=== PATIENT | male | born 1950 | race Caucasian/White ===

== ENCOUNTER → 2016-10-11 | Outpatient (CLI) | payer MEDICARE, BC ==
[2015-11-11 10:28] VITALS: BP 131/67
[~2016-10-11] MED LIST: ASPI81TA2 PO; BUDE10.2 IH; CARV6.252 PO; GABA-586 PO; HYDR-971 PO; HYDR25TA9 PO; IOHEXOL 180 MG/ML 10 ML VIAL. ONE; LISI-334 PO; METF10002 PO; PROAIR HFA8.5 GM IH; TAMS0.4C2 PO; TIOT18CA IH; TRAM50TA PO; ZINC50TA2 PO; methylPREDNISolone ACETATE 40 MG/ML VIAL. ONE; methylPREDNISolone ACETATE 80 MG/ML VIAL. ONE
--- NOTE | 2016-10-12 05:32 | PAIN ---
DATE OF SERVICE: 10/11/2016 INITIAL CONSULTATION FOR PAIN CLINIC CHIEF COMPLAINT: Neck and right greater than left upper extremity pain. HISTORY OF PRESENT ILLNESS: This is a 66-year-old male who presents with history of pain in the base of the neck and upper extremities for about a year and a half, gradually increasing, not a result of any specific injury or action he is aware of, but significantly more painful over the past few months, increasing in the base of the neck, shoulders, radiating to bilateral upper extremities, worse on the right than the left, in the posterior upper arm, posterior forearm and hands with numbness and tingling in all the fingers, especially on the right hand, but also on the left. The patient reports he has some peripheral neuropathy as well. This is causing some tingling, is much more than it normally is, especially on the right side. The patient reports he is doing physical therapy, has been currently doing this for about a month now and reports that it does feel like his neck is more mobile and he feels like the pain is decreased to a mild extent with still significant tingling, numbness and some fatigability in the upper extremities, especially with repetitive motions of the right hand. The patient reports it as a constant aching pain, tingling and numbness radiating to the bilateral upper extremities, again right greater than left, awakens him from sleep occasionally, but not every night, does not affect his bowel and bladder control, but does affect his ability to walk and perform functions, especially getting dressed using his arms up over his head or repetitive motions with the upper extremities or carrying items with his arms. The patient reports that his disability rating from 0 to 10, 10 being the worst, is a 5 with family and home responsibilities and recreation as well as self-care, 7 with social activity, 6 with occupation and a 4 with life support activities. The patient did have an MRI scan of the cervical spine showing diffuse cervical spondylosis with a moderately large left paramidline and foraminal disk herniation at C6-C7 measuring 5 x 9 mm ____ in the medial aspect of the left neural foramen and associated with thecal sac and cord compression with AP diameter of the thecal sac measuring about 7 mm. Also, has some diffuse disk bulging at C4-C5 and C5-C6 as well as C7-T1. The patient reports no loss of motor function, improving with significant fatigability with the upper extremities, especially on the right side and the patient is right handed. PAST MEDICAL HISTORY: Significant for type 2 diabetes, shortness of breath, emphysema, COPD, home oxygen, cigarette smoking, hypertension, previous myocardial infarction, dizziness, headaches, arthritis. Previous lumbar surgery in 1987. CURRENT MEDICATIONS: Include vitamin E, zinc, carvedilol, metformin, hydrochlorothiazide, lisinopril, gabapentin, low-dose baby aspirin and tamsulosin daily. ALLERGIES: The patient has no known drug allergies. FAMILY HISTORY: Significant for cancer, heart disease and diabetes. 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 REVIEW OF SYSTEMS: The patient's review of systems is positive for those items mentioned in the history of present illness. All systems reviewed and is otherwise negative. It is complete, full and well documented on the patient's chart. PHYSICAL EXAMINATION: VITAL SIGNS: The patient's blood pressure is 129/74, pulse 88, respirations 24, temperature is 97.9 degrees Fahrenheit. Height is 5 feet 11 inches, weighs 227 pounds. GENERAL: The patient is awake, alert, oriented, appropriate, very pleasant demeanor. HEENT: Head shows normocephalic, atraumatic. Extraocular movements are intact and symmetrical. Oral cavity shows mucous membranes moist and pink. Dentition is intact. NECK: Shows anterior throat supple without palpable lymphadenopathy noted. Swallow reflex is symmetrical. CHEST: Shows normal on inspection. Breath sounds are clear to auscultation bilaterally. HEART: Shows S1 and S2 clear. ABDOMEN: Soft, nontender, nondistended. No palpable organomegaly is noted. No rebound or guarding demonstrated, normal on inspection. BACK: Shows spine grossly midline, normal-appearing cervical lordotic curvature, thoracic kyphotic curvature, mild flattening of lumbar lordotic curvature and previously well-healed surgical scar noted. Cervical paraspinous muscle shows some moderate tenderness to palpation in the bilateral cervical paraspinous muscles and are symmetrical, but firm and tender with palpation. No abnormalities, no asymmetry, trigger points or radiation. This appears into the superior medial and lateral trapezius, more on the right than the left. Again, symmetrical in appearance, but more tender with palpation. EXTREMITIES: Upper extremities showed deep tendon reflexes 1+ in the biceps and triceps tendons. Motor exam is strong with acid tank liner strength rated at 5/5 at his biceps and triceps flexion. Peripheral pulses are 2+ in the radial distribution. No peripheral edema is noted. No clubbing, no cyanosis. Upper extremities are warm and dry to touch, equal in color and appearance. Shoulder shrug is strong and intact without loss of strength on resistance as his abduction of the shoulder is 90 degrees without loss of strength on resistance with some moderate pain reported bilaterally in the upper and on the right and left upper shoulders with resistance. IMPRESSION: 1. This is a 66-year-old male with approximately a year and half history of increasing pain base of the neck, upper extremities, right greater than left in a radicular fashion. 2. MRI scan of cervical spine as noted. 3. Hypertension. 4. Type 2 diabetes. 5. Emphysema. PLAN: Options were discussed with the patient including conservative medical management, physical therapy, interventional techniques. He would like to pursue interventional techniques. We discussed a cervical epidural steroid injection using description as well as anatomical models to describe the procedure. Risks were then discussed including, but not limited to bleeding, infection, possibility of epidural hematoma, subsequent neurologic compromise, dural puncture, headaches, spinal cord and/or nerve damage, side effects of steroid medications and poor results regarding pain control. The patient understands and wishes to proceed. The patient will return to clinic in approximately 2 weeks for followup, was counseled on return appointment, activity level and side effects to be aware of. DIAGNOSES: Cervical radiculopathy with cervical herniated disk and cervical degenerative disk disease. PROCEDURE: Cervical epidural steroid injection in a translaminar approach at C6-C7 level using C-arm fluoroscopic guidance under sterile prep and drape using local anesthetic. MEDICATIONS INJECTED: A 120 mg of Depo-Medrol plus 5 mL preservative-free normal saline and 2 mL of Isovue for contrast. CONDITION AT DISCHARGE: Stable. The patient tolerated the procedure well, had no complications. STACI ARVIZU MD DR: SHARON/adri JOB#: [id number] / [id number] ORLY Hernandez MD
== END | disposition home or self-care (01) ==
LOC: PNCL 12:40
PROVIDERS: ATTEND Anesthesiology
DX: M50.123 Cervical disc disorder at C6-C7 level with radiculopathy (principal); E11.9 Type 2 diabetes mellitus without complications; I10 Essential (primary) hypertension; J43.9 Emphysema, unspecified; F17.200 Nicotine dependence, unspecified, uncomplicated; E78.00 Pure hypercholesterolemia, unspecified; J44.9 Chronic obstructive pulmonary disease, unspecified; F41.9 Anxiety disorder, unspecified; F32.9 Major depressive disorder, single episode, unspecified; M19.90 Unspecified osteoarthritis, unspecified site; J45.909 Unspecified asthma, uncomplicated; Z87.39 Personal history of other diseases of the musculoskeletal system and connective tissue
CPT/HCPCS: 62321; J1030; J1040

== ENCOUNTER → 2016-11-16 | Outpatient (CLI) | payer MEDICARE, BC ==
[2015-11-11 10:28] VITALS: BP 131/67
[~2016-11-16] MED LIST changes: +HYDR-2762 PO
--- NOTE | 2016-11-17 07:14 | PAIN ---
DATE OF SERVICE: 11/16/2016 PROGRESS NOTE FOR PAIN CLINIC DIAGNOSIS: Cervical radiculopathy with cervical herniated disk and cervical degenerative disk disease. HISTORY OF PRESENT ILLNESS: The patient is a 66-year-old male who returns for followup status post cervical epidural steroid injection x 1. The patient reports about 75% improvement or better, but the pain is beginning to return on him now for the past 2-3 days. The patient reports it has increased in the base of the neck and left shoulder, upper extremity as it was previously, some in the right posterior upper back, but mostly in the left arm with some numbness and tingling that is becoming more constant. The patient reports it is a 9 on a scale of 10 at its worst. He is taking hydrocodone still, which helps to decrease the pain by about 50% as well. The patient reports otherwise no new motor or sensory deficits or other complaints. Did very well with the first injection, was increasing his activity with greater ease and comfort, again until the last 2-3 days, it has been very well controlled. The patient reports otherwise no complaints. PHYSICAL EXAMINATION: VITAL SIGNS: The patient's blood pressure is 141/80, pulse is 88, respirations 20, temperature is 98.0 degrees Fahrenheit, height is 5 feet 11 inches, weight is 232 pounds. GENERAL: The patient is awake, alert, oriented, appropriate, has a very pleasant demeanor. HEENT: Shows normocephalic, atraumatic. Extraocular movements are intact, symmetrical. Oral cavity, his mucous membranes are moist and pink. Dentition is intact. NECK: Shows anterior throat supple without palpable lymphadenopathy noted. Swallow reflex is symmetrical. CHEST: Shows normal on inspection. Breath sounds are clear to auscultation bilaterally. HEART: Shows S1 and S2 clear. ABDOMEN: Obese, soft, nontender, nondistended. Slight umbilical hernia is noted once again. MUSCULOSKELETAL: The patient's back shows spine grossly in the midline. Neck shows midline spine with moderate tenderness with palpation in the inferior aspect of the cervical paraspinous musculature as well as the superior medial trapezius bilaterally, but only diffusely without radiation. The patient shows good rotational motion of the cervical spine, both laterally as well as extension and flexion without significant limitation. Upper extremities show deep tendon reflexes at 1+ in the biceps and triceps tendons. Motor exam is strong with 5/5 vice president of procurement strength, biceps and triceps flexion and equal. PLAN: Options were discussed with the patient. The patient's old chart was reviewed as was his current medication regimen and updated. Current review of systems updated today as well. We will proceed with a second cervical epidural steroid injection today with fluoroscopic guidance. The risks were again discussed including, but not limited to bleeding, infection, possibility of epidural hematoma, subsequent neurological compromise, dural puncture, headaches, spinal cord and/or nerve damage, side effects of steroid medication and poor results regarding pain control. The patient understands and wishes to proceed. The patient will return to the clinic in approximately 2 weeks for followup, was counseled on his return appointment, activity level and side effects to be aware of. DIAGNOSIS: Cervical radiculopathy with cervical herniated disk and cervical degenerative disk disease. PROCEDURE: Cervical epidural steroid injection in a translaminar approach at the C6-C7 level using C-arm fluoroscopic guidance under sterile prep and drape using local anesthetic. MEDICATIONS INJECTED: 120 mg Depo-Medrol plus 5 mL preservative-free normal saline and 2 mL Isovue for contrast. CONDITION AT DISCHARGE: Stable. The patient tolerated the procedure well, had no complications. STACI ARVIZU MD DR: SHARON/adri JOB#: [id number] / [id number]
== END ==
LOC: PNCL 08:13
PROVIDERS: ATTEND Anesthesiology
DX: M50.123 Cervical disc disorder at C6-C7 level with radiculopathy (principal)
CPT/HCPCS: 62321; J1030; J1040

== ENCOUNTER → 2017-01-22 | Outpatient (CLI) | payer MEDICARE, BC ==
[2015-11-11 10:28] VITALS: BP 131/67
[~2017-01-22] MED LIST changes: +ASPI-630 PO; -ASPI81TA2 PO; +METF-620 PO; -METF10002 PO
--- NOTE | 2017-01-23 03:57 | PAIN ---
DATE OF SERVICE: 01/22/2017 PROGRESS NOTE FOR PAIN CLINIC DIAGNOSES: Cervical radiculopathy with cervical herniated disk and cervical degenerative disk disease. HISTORY OF PRESENT ILLNESS: The patient is a 66-year-old male who returns for followup status post cervical epidural steroid injection x 2, last seen on 11/16/2016. The patient did very well with this with about 80% improvement for about a month. The patient reports that over the past week, the pain has begun to return in the base of the neck and shoulders, somewhat worse on the left than the right, but present bilaterally. The patient reports the pain as a 10 on a scale of 10 at its worst, ____ severe, constant, severe dull aching pain in the base of the shoulders and neck, worse with activity, worse with upper extremity motion. The patient reports it is better with sitting or lying down. It does not awaken him from sleep at night. Otherwise, no new motor or sensory deficits or other changes. PHYSICAL EXAMINATION: VITAL SIGNS: Shows blood pressure 124/73, pulse 80, respirations are 22, temperature is 97.6 degrees Fahrenheit, height is 5 feet 11 inches and weight is 229 pounds. GENERAL: The patient is awake, alert, oriented, appropriate, very pleasant demeanor. HEENT: Shows normocephalic, atraumatic. Extraocular movements are intact and symmetrical. Oral cavity shows mucous membranes moist and pink. Dentition is intact. NECK: Shows anterior throat supple without palpable lymphadenopathy noted. Swallow reflex is symmetrical. CHEST: Shows normal on inspection. Breath sounds clear to auscultation bilaterally. HEART: Shows S1 and S2 clear. ABDOMEN: Soft, nontender, nondistended. No palpable organomegaly. No rebound or guarding demonstrated. BACK: Shows spine grossly midline. Slight exaggeration of thoracic kyphosis, cervical lordotic curvatures mildly flattened. Cervical paraspinous musculature shows only some very mild tenderness in the middle and lower distribution of paraspinous muscles bilaterally, but only diffusely without radiation. No tenderness in the superior medial trapezius. The patient has good rotational motion with some minor pain with forward extension, but not with forward flexion. Good right and left lateral rotation although it is slightly ____ past 45 degrees. EXTREMITIES: Bilateral upper extremities showed deep tendon reflexes 1+ in the biceps and triceps tendons. Motor exam is strong with chiropractic neurologist strength rated at 5/5 at his biceps and triceps flexion. Options were discussed with the patient and the patient's old chart was reviewed as his current medication regimen updated. Current review of systems updated today as well. We will proceed with a third in the series of cervical epidural steroid injection with fluoroscopic guidance. Risks were again discussed including but not limited to bleeding, infection, possibility of epidural hematoma, subsequent neurologic compromise, dural puncture, headaches, spinal cord and/or nerve damage, side effects of steroid medication and poor results regarding pain control. The patient understands and wishes to proceed. The patient will return to clinic in approximately 2 weeks for followup, was counseled on return appointment, activity level and side effects to be aware of. DIAGNOSIS: Cervical radiculopathy with cervical degenerative disk disease, cervical herniated disk. PROCEDURE: Cervical epidural steroid injection in translaminar approach at C6-C7 level using C-arm fluoroscopic guidance under sterile prep and drape using local anesthetic. MEDICATIONS INJECTED: 120 mg of Depo-Medrol plus 5 mL of preservative-free normal saline and 2 mL Isovue for contrast. CONDITION AT DISCHARGE: Stable. The patient tolerated procedure well, had no complications. STACI ARVIZU MD DR: SHARON/adri JOB#: [id number] / [id number]
== END | disposition home or self-care (01) ==
LOC: PNCL 09:22
PROVIDERS: ATTEND Anesthesiology
DX: M50.123 Cervical disc disorder at C6-C7 level with radiculopathy (principal); I50.9 Heart failure, unspecified; I10 Essential (primary) hypertension; J44.9 Chronic obstructive pulmonary disease, unspecified; J45.909 Unspecified asthma, uncomplicated; M19.90 Unspecified osteoarthritis, unspecified site; E78.00 Pure hypercholesterolemia, unspecified; E11.9 Type 2 diabetes mellitus without complications; F41.9 Anxiety disorder, unspecified; Z72.0 Tobacco use; Z86.39 Personal history of other endocrine, nutritional and metabolic disease; Z86.69 Personal history of other diseases of the nervous system and sense organs
CPT/HCPCS: 62321; J1030; J1040

== ENCOUNTER 2017-02-17 22:40 | Emergency (ER) | payer MEDICARE, BC ==
[~2017-02-17] VITALS: Ht 177.8 cm; Wt 99.8 kg
[~2017-02-17 22:40] MED LIST changes: -IOHEXOL 180 MG/ML 10 ML VIAL. ONE; -methylPREDNISolone ACETATE 40 MG/ML VIAL. ONE; -methylPREDNISolone ACETATE 80 MG/ML VIAL. ONE
[2017-02-17 22:50] VITALS: BP 114/65
--- NOTE | 2017-02-17 22:56 | PHYS DOC ---
Past Medical History Past Medical History: COPD, High Cholesterol, Hypertension Additional Past Medical Histor: enlarged prostate Past Surgical History: Other Additional Past Surgical Histo: BACK Alcohol Use: None Drug Use: None Adult General Chief Complaint Chief Complaint: SHORTNESS OF BREATH HPI HPI Patient is a 66 year old male w hx of oxygen dependent copd presents with one day of dyspnea , cough, no fever, no chest pain. no n/v/d, no abd pain or leg swelling. Review of Systems Review of Systems Constitutional: Denies fever or chills [] Eyes: Denies change in visual acuity, redness, or eye pain [] HENT: Denies nasal congestion or sore throat [] Respiratory: Denies cough or shortness of breath [] Cardiovascular: No additional information not addressed in HPI [] GI: Denies abdominal pain, nausea, vomiting, bloody stools or diarrhea [] : Denies dysuria or hematuria [] Musculoskeletal: Denies back pain or joint pain [] Integument: Denies rash or skin lesions [] Neurologic: Denies headache, focal weakness or sensory changes [] Endocrine: Denies polyuria or polydipsia [ all ROS neg except as noted in HPI] Current Medications Current Medications Current Medications Medications (Trade) Dose Ordered Sig/Sarah Start Time Stop Time Status Last Admin Dose Admin Albuterol Sulfate (Ventolin Neb Soln) 2.5 mg 1X ONCE 02/17/17 23:15 02/17/17 23:16 DC 02/17/17 23:05 2.5 MG Methylprednisolone Sodium Succinate (SOLU-Medrol 125MG VIAL) 125 mg 1X ONCE 02/17/17 23:15 02/17/17 23:16 DC 02/17/17 23:16 125 MG Allergies Allergies Allergies Coded Allergies Type Severity Reaction Last Updated Verified No Known Drug Allergies 02/18/15 No Physical Exam Physical Exam Constitutional: Well developed, well nourished, no acute distress, non-toxic appearance. [] HENT: Normocephalic, atraumatic, bilateral external ears normal, oropharynx moist, no oral exudates, nose normal. [] Eyes: PERRLA, EOMI, conjunctiva normal, no discharge. [] Neck: Normal range of motion, no tenderness, supple, no stridor. [] Cardiovascular:Heart rate regular rhythm, no murmur [] Lungs & Thorax: Bilateral breath faint wheezing w increased work of breathing [ ] Abdomen: Bowel sounds normal, soft, no tenderness, no masses, no pulsatile masses. [] Skin: Warm, dry, no erythema, no rash. [] Back: No tenderness, no CVA tenderness. [] Extremities: No tenderness, no cyanosis, no clubbing, ROM intact, no edema. [] Neurologic: Alert and oriented X 3, normal motor function, normal sensory function, no focal deficits noted. [] Psychologic: Affect normal, judgement normal, mood normal. [] Current Patient Data Vital Signs Vital Signs Date Time Temp Pulse Resp B/P (MAP) Pulse Ox O2 Delivery O2 Flow Rate FiO2 02/17/17 23:05 93 Nasal Cannula 2.0 02/17/17 22:50 98.9 92 22 114/65 (81) 98.9 Lab Values Laboratory Tests Test 02/17/17 23:00 White Blood Count 8.6 x10^3/uL (4.0-11.0) Red Blood Count 4.53 x10^6/uL (4.30-5.70) Hemoglobin 14.0 g/dL (13.0-17.5) Hematocrit 40.7 % (39.0-53.0) Mean Corpuscular Volume 90 fL (79-100) Mean Corpuscular Hemoglobin 31 pg (25-35) Mean Corpuscular Hemoglobin Concent 34 g/dL (31-37) Red Cell Distribution Width 15.0 % (11.5-14.5) H Platelet Count 130 x10^3/uL (140-400) L Neutrophils (%) (Auto) 67 % (31-73) Lymphocytes (%) (Auto) 21 % (24-48) L Monocytes (%) (Auto) 9 % (0-9) Eosinophils (%) (Auto) 2 % (0-3) Basophils (%) (Auto) 1 % (0-3) Neutrophils # (Auto) 5.8 x10^3uL (1.8-7.7) Lymphocytes # (Auto) 1.8 x10^3/uL (1.0-4.8) Monocytes # (Auto) 0.8 x10^3/uL (0.0-1.1) Eosinophils # (Auto) 0.2 x10^3/uL (0.0-0.7) Basophils # (Auto) 0.1 x10^3/uL (0.0-0.2) Sodium Level 139 mmol/L (136-145) Potassium Level 3.5 mmol/L (3.5-5.1) Chloride Level 99 mmol/L (98-107) Carbon Dioxide Level 33 mmol/L (21-32) H Anion Gap 7 (6-14) Blood Urea Nitrogen 18 mg/dL (8-26) Creatinine 0.7 mg/dL (0.7-1.3) Estimated GFR (Cockcroft-Gault) 112.5 BUN/Creatinine Ratio 26 (6-20) H Glucose Level 117 mg/dL (70-99) H Calcium Level 9.3 mg/dL (8.5-10.1) Total Bilirubin 0.5 mg/dL (0.2-1.0) Aspartate Amino Transferase (AST) 16 U/L (15-37) Alanine Aminotransferase (ALT) 24 U/L (16-63) Alkaline Phosphatase 66 U/L (46-116) Troponin I Quantitative < 0.017 ng/mL (0.000-0.055) Total Protein 7.0 g/dL (6.4-8.2) Albumin 3.8 g/dL (3.4-5.0) Albumin/Globulin Ratio 1.2 (1.0-1.7) Laboratory Tests 02/17/17 23:00 Laboratory Tests 02/17/17 23:00 EKG EKG EKG[EKG sinus rhythm rate of 92 no STEMI my interpretation] Radiology/Procedures Radiology/Procedures CXR [COPD no infiltrate, no pneumothorax no heart failure my interpretation] Course & Med Decision Making Course & Med Decision Making Pertinent Labs and Imaging studies reviewed. (See chart for details) plan cxr , ekg , labs, breathing neb treatments[] Patient was dramatically improved after one albuterol treatment and IV steroids. His work of breathing is normal his O2 saturation is normal on his baseline of 2 L of O2 by nasal cannula. Dragon Disclaimer Dragon Disclaimer This electronic medical record was generated, in whole or in part, using a voice recognition dictation system. Departure Departure Impression: Primary Impression: COPD with exacerbation Disposition: HOME, SELF-CARE Condition: IMPROVED Referrals: ORLY DASH MD (PCP) Patient Instructions: Chronic Obstructive Pulmonary Disease Exacerbation, Easy- to-Read Scripts Prednisone (PREDNISONE) 20 Mg Tablet 2 TAB PO DAILY for 5 Days, #10 TAB Prov: YONG BASS MD 02/17/17 YONG BASS MD Feb 17, 2017 22:56
[2017-02-17 23:12] LABS: BASO # 0.1 x10^3/uL (0.0-0.2); BASO % 1 % (0-3); EOS % 2 % (0-3); HEMATOCRIT 40.7 % (39.0-53.0); LYMPH # 1.8 x10^3/uL (1.0-4.8); LYMPH % 21 % (24-48); MEAN CORPUSCULAR HEMOGLOBIN 31 pg (25-35); MEAN CORPUSCULAR HGB CONC 34 g/dL (31-37); MEAN CORPUSCULAR VOLUME 90 fL (79-100); MONO % 9 % (0-9); NEUT % 67 % (31-73); PLATELET COUNT 130 x10^3/uL (140-400); RED BLOOD COUNT 4.53 x10^6/uL (4.30-5.70); WHITE BLOOD COUNT 8.6 x10^3/uL (4.0-11.0)
[2017-02-17] MEDS ORDERED: methylPREDNISolone SOD SUCC PF 125 MG/2 ML VIAL. IV ONE (23:15)
[2017-02-17] MEDS ORDERED: ALBUTEROL SULFATE 2.5 MG/3 ML NEBU. NEB ONE (23:15)
[2017-02-17 23:30] LABS: CALCIUM 9.3 mg/dL (8.5-10.1); CREATININE 0.7 mg/dL (0.7-1.3); GFR 112.5; POTASSIUM 3.5 mmol/L (3.5-5.1)
[2017-02-17 23:35] LABS: ALBUMIN 3.8 g/dL (3.4-5.0); ALBUMIN/GLOBULIN RATIO 1.2 (1.0-1.7); TOTAL BILIRUBIN 0.5 mg/dL (0.2-1.0)
[2017-02-17] MEDS ORDERED: PRED20TA PO (23:51)
--- NOTE | 2017-02-18 06:13 | EKG ---
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
--- NOTE | 2017-02-18 08:29 | RAD ---
Portable chest, 02/27/2017: History: COPD, dyspnea Comparison is made to a study from 11/09/2015. The heart size and pulmonary vascularity are normal. There is calcific plaquing of the aorta. There are mild scattered parenchymal scars. No acute infiltrate is seen. There is no evidence of pleural fluid. IMPRESSION: 1. Mild parenchymal scarring. 2. No acute abnormality is detected.
== END 2017-02-18 00:15 | disposition home or self-care (01) ==
LOC: ER 22:40
DX: J44.1 Chronic obstructive pulmonary disease with (acute) exacerbation (principal); E78.00 Pure hypercholesterolemia, unspecified; I10 Essential (primary) hypertension; N40.0 Benign prostatic hyperplasia without lower urinary tract symptoms; Z99.81 Dependence on supplemental oxygen
CPT/HCPCS: 36415; 71010; 80053; 84484; 85027; 93005; 94250; 94640; 96374; 99285; J2930

== ENCOUNTER → 2017-02-18 | Outpatient (CLI) | payer BC, MEDICARE ==
[2017-02-17 22:50] VITALS: BP 114/65
[~2017-02-18] MED LIST changes: +PRED20TA PO
--- NOTE | 2017-02-18 11:16 | RAD ---
CT of the chest without contrast, 02/10/2017: History: Follow-up lung nodule Noncontrast scans were obtained with multiplanar reconstructions produced. There are severe emphysematous changes in the lungs. There is mild bilateral apical scarring. There are several scattered calcified granulomata in the lungs. There are additional scattered linear opacities in both lungs compatible with scars. There are linear opacities medially in the right middle lobe compatible with pleural-parenchymal scarring. No suspicious pulmonary nodule or mass is currently seen. There is no evidence of pleural fluid. There is moderate calcific plaquing of the thoracic aorta. There is unchanged dilatation of the ascending aorta which measures approximately 4.5 cm in width. There are moderate coronary artery calcifications. No mediastinal adenopathy is seen. A couple of tiny left renal calcifications are again noted. IMPRESSION: 1. Severe pulmonary emphysema with parenchymal scarring. 2. Old healed granulomatous disease in the chest. 3. Aortic atherosclerosis with mild stable dilatation of the ascending aorta. 4. Coronary artery disease. PQRS Compliance Statement: One or more of the following individualized dose reduction techniques were utilized for this examination: 1. Automated exposure control 2. Adjustment of the mA and/or kV according to patient size 3. Use of iterative reconstruction technique
== END | disposition home or self-care (01) ==
LOC: CT 08:09
PROVIDERS: ATTEND Internal Medicine Pulmonary Disease
DX: R91.1 Solitary pulmonary nodule (principal); I70.0 Atherosclerosis of aorta; J43.9 Emphysema, unspecified; I25.10 Atherosclerotic heart disease of native coronary artery without angina pectoris
CPT/HCPCS: 71250

== ENCOUNTER → 2017-03-07 | Outpatient (CLI) | payer MEDICARE ==
[2017-02-17 22:50] VITALS: BP 114/65
--- NOTE | 2017-03-08 03:14 | PAIN ---
DATE OF SERVICE: 03/07/2017 PROGRESS NOTE FOR PAIN CLINIC DIAGNOSIS: Cervical radiculopathy with cervical herniated disk and cervical degenerative disk disease. HISTORY OF PRESENT ILLNESS: The patient is a 66-year-old male who returns for followup status post cervical epidural steroid injections x 3, last injection 01/22/2017. The patient does well for about 4-5 weeks after the injection with significant decreased pain in the neck and upper extremities, but after that time, the pain returned almost to its baseline. The patient reports it is a 10 on a scale of 10 at its worst, is a 5 on the scale at its least, is currently a 7 on a scale of 10, base of the neck and into the bilateral shoulders, right greater than left as it was previously. The patient reports no new motor or sensory deficits, but still significant pain, aching and dull, shooting and stabbing, causing headaches as well, just as it had done after each of the injections. The patient has had 3 of these now, somewhat frustrated with the return of the pain. The patient reports sporadically it awakes him from sleep at night. If he gets out of bed or changes positions, does get better and can get back to sleep. The patient reports no new motor or sensory deficits or other complaints. PHYSICAL EXAMINATION: VITAL SIGNS: The patient's blood pressure is 129/69, pulse 73, respirations 16, temperature is 98.2 degrees Fahrenheit, height is 5 feet 11 inches, weight is 234 pounds. GENERAL: The patient is awake, alert, oriented, appropriate, has a very pleasant demeanor. HEENT: Shows normocephalic, atraumatic. The patient is wearing nasal cannula oxygen. Oral cavity: His mucous membranes are moist and pink. Extraocular movements are intact and symmetrical. NECK: Shows anterior throat supple without palpable lymphadenopathy noted. Swallow reflex is symmetrical. CHEST: Shows normal on inspection. Breath sounds are clear to auscultation bilaterally, but distant. HEART: Shows S1 and S2 clear. No murmurs auscultated. ABDOMEN: Obese, soft, nontender, nondistended. No palpable organomegaly is noted. No rebound or guarding demonstrated. BACK: Shows spine grossly in the midline. Cervical paraspinous musculature shows symmetrical, but with palpation shows some moderate tenderness in the middle and lower distribution of the paraspinous muscles bilaterally without radiation into the superior and medial aspect of the trapezius muscles, more tender on the right than the left as on previous exam. EXTREMITIES: Upper extremities show deep tendon reflexes 1+ in the biceps and triceps tendons and are equal. 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 Peripheral pulses are 2+ in the radial distribution. No peripheral edema is noted. No clubbing, no cyanosis. Shoulder shrug is strong and intact as is abduction of the shoulders to 90 degrees without loss of strength on resistance, but with some minor pain reported more on the right than the left. PLAN: Options were discussed with the patient. The patient's old chart was reviewed as was his current medication regimen and updated. Current review of systems updated today as well. We will refer the patient back to his neurosurgeon as he has had all 3 of his injections at this time with good results only for about 4-5 weeks, not lasting longer than this with continued cervical radiculopathy as well as herniated cervical disk. The patient will be given Medrol Dosepak in the meantime, was given instructions as well as side effects to be aware of with the medication and will follow up with his neurosurgeon. STACI ARVIZU MD DR: SHARON/adri JOB#: [id number] / [id number]
== END | disposition home or self-care (01) ==
LOC: PNCL 09:06
PROVIDERS: ATTEND Anesthesiology
DX: M50.30 Other cervical disc degeneration, unspecified cervical region (principal)
CPT/HCPCS: G0463

== ENCOUNTER → 2017-04-12 | Outpatient (CLI) | payer MEDICARE ==
--- NOTE | 2017-04-12 14:05 | RAD ---
MRI Cervical Spine Without Contrast History: Neck pain with bilateral arm stiffness Technique: Multiplanar, multi sequential noncontrast MR imaging was performed of the cervical spine. Comparison: None Findings: There is motion degradation, limits accurate evaluation of neural foramina. There is very minimal grade 1 anterior spondylolisthesis C7-T1 and T1-2. Cervical cord caliber is within normal limits without convincing focal signal abnormality allowing for artifact. There is mild degenerative disc disease C6-7. There is no significant marrow edema. There is no significant abnormality cervical medullary junction. C2-3: Spinal canal and neural foramina are adequate. There is mild right uncovertebral degenerative change. C3-C4: There is moderate to severe bilateral facet hypertrophic change. There is very shallow posterior protrusion greater in the right lateral recess. Central canal is minimally narrowed to 9 mm. There is mild uncovertebral degenerative change. There is probable [id number] neural foramina compromise. C4-C5: There is severe right facet hypertrophic change. Spinal canal is adequate. There is mild left uncovertebral degenerative change. There is likely at least moderate neural foramina compromise bilaterally. C5-C6: There is fairly severe facet hypertrophic change bilaterally. There is mild buckling of the ligamentum flavum. Central canal is adequate 11 mm. There is left uncovertebral degenerative change. There is severe narrowing of the left neural foramen. There is moderate to severe narrowing of the right neural foramen. C6-C7: There is posterior extrusion partially contained about intervertebral disc space although extent above the intervertebral disc space eccentric to the left lateral recess, up to 5 to 6 mm AP by 10 mm CC by 11 and 12 mm transverse. There is indentation upon the ventral thecal sac and contact of the cord greater in the left lateral recess. Central canal is narrowed to approximately 6 mm with a somewhat greater degree of left lateral recess stenosis. There is fairly severe narrowing of the left neural foramen, likely mild/moderate narrowing on the right. C7-T1: Spinal canal and neural foramina are adequate. Impression: 1. Extrusion at C6-7 results in moderate to severe left lateral recess stenosis with contact of the ventral cord greater in the left lateral recess, also narrowing of the left neural foramen. 2. There is other neural foramina compromise due to facet degenerative change as described, somewhat limited evaluation due to motion. Electronically signed by: Polo Cole MD (04/12/2017 2:01 PM) [id number]
== END | disposition home or self-care (01) ==
LOC: MRI 12:26
PROVIDERS: ATTEND Neurological Surgery
DX: M50.223 Other cervical disc displacement at C6-C7 level (principal); M51.36 Other intervertebral disc degeneration, lumbar region; M43.12 Spondylolisthesis, cervical region; M50.323 Other cervical disc degeneration at C6-C7 level; M48.02 Spinal stenosis, cervical region; M50.221 Other cervical disc displacement at C4-C5 level
CPT/HCPCS: 72141

== ENCOUNTER 2017-05-14 21:26 | Emergency (ER) | payer MEDICARE, BC ==
[~2017-05-14] VITALS: Ht 180.3 cm; Wt 104.3 kg
[2017-05-14] MEDS ORDERED: ASPIRIN ENTERIC COATED 325 MG TABLET.DR. PO ONE (22:00)
[2017-05-14] MEDS ORDERED: IPRATRPIUM/ALBUTEROL 0.5/2.5MG 3 ML NEBU. NEB ONE (22:00)
[2017-05-14] MEDS ORDERED: methylPREDNISolone SOD SUCC PF 125 MG/2 ML VIAL. IV ONE (22:00)
[2017-05-14 22:01] LABS: BASO # 0.1 x10^3/uL (0.0-0.2); BASO % 1 % (0-3); EOS % 3 % (0-3); HEMATOCRIT 40.6 % (39.0-53.0); HEMOGLOBIN 13.6 g/dL (13.0-17.5); LYMPH # 1.1 x10^3/uL (1.0-4.8); LYMPH % 16 % (24-48); MEAN CORPUSCULAR HEMOGLOBIN 30 pg (25-35); MEAN CORPUSCULAR HGB CONC 34 g/dL (31-37); MEAN CORPUSCULAR VOLUME 90 fL (79-100); MONO % 9 % (0-9); NEUT % 72 % (31-73); PLATELET COUNT 154 x10^3/uL (140-400); RED BLOOD COUNT 4.51 x10^6/uL (4.30-5.70); RED CELL DISTRIBUTION WIDTH 15.1 % (11.5-14.5); WHITE BLOOD COUNT 7.2 x10^3/uL (4.0-11.0)
[2017-05-14 22:07] VITALS: BP 91/59
[2017-05-14 22:10] LABS: PROTHROMBIN TIME PATIENT 12.5 SEC (11.7-14.0)
[2017-05-14 22:15] LABS: CALCIUM 9.2 mg/dL (8.5-10.1); CREATININE 0.8 mg/dL (0.7-1.3); GFR 96.4; POTASSIUM 3.5 mmol/L (3.5-5.1)
[2017-05-14 22:21] LABS: ALBUMIN 3.9 g/dL (3.4-5.0); ALBUMIN/GLOBULIN RATIO 1.3 (1.0-1.7); MAGNESIUM 1.8 mg/dL (1.8-2.4); TOTAL BILIRUBIN 0.3 mg/dL (0.2-1.0)
[2017-05-14] MEDS ORDERED: PRED50TA PO (23:17)
--- NOTE | 2017-05-14 23:17 | PHYS DOC ---
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 Started after inhaling some Clorox earlier this morning he feels that he is getting worse throughout the day. Patient does have a history of COPD and wears 2 L of oxygen at baseline and says that he has not needed extra oxygen but he does feel more short of breath. He has been using his nebulized treatments with no relief. Patient denies any pain fevers chills nausea vomiting diaphoresis. He is in no obvious distress with normal vital signs. Review of Systems Review of Systems Constitutional: Denies fever or chills [] Eyes: Denies change in visual acuity, redness, or eye pain [] Respiratory: + cough, shortness of breath [] Cardiovascular: No additional information not addressed in HPI [] GI: Denies abdominal pain, nausea, vomiting, bloody stools or diarrhea [] Neurologic: Denies headache, focal weakness or sensory changes [] Current Medications Current Medications Current Medications Medications (Trade) Dose Ordered Sig/Sarah Start Time Stop Time Status Last Admin Dose Admin Albuterol/ Ipratropium (Duoneb) 3 ml 1X ONCE 05/14/17 22:00 05/14/17 22:01 DC 05/14/17 22:58 3 ML Aspirin (Ecotrin) 325 mg 1X ONCE 05/14/17 22:00 05/14/17 22:01 DC 05/14/17 22:06 325 MG Methylprednisolone Sodium Succinate (SOLU-Medrol 125MG VIAL) 125 mg 1X ONCE 05/14/17 22:00 05/14/17 22:01 DC 05/14/17 22:06 125 MG Allergies Allergies Allergies Coded Allergies Type Severity Reaction Last Updated Verified No Known Drug Allergies 02/18/15 No Physical Exam Physical Exam Constitutional: Well developed, well nourished, no acute distress, non-toxic appearance. [] HENT: Normocephalic, atraumatic, bilateral external ears normal, oropharynx moist, no oral exudates, nose normal. [] Cardiovascular:Heart rate regular rhythm, no murmur [] Lungs & Thorax: Bilateral breath sounds diminished with inspiratory and expiratory wheezing Abdomen: Bowel sounds normal, soft, no tenderness, no masses, no pulsatile masses. [] Extremities: No tenderness, no cyanosis, no clubbing, ROM intact, no edema. [] Neurologic: Alert and oriented X 3, normal motor function, normal sensory function, no focal deficits noted. [] Current Patient Data Vital Signs Vital Signs Date Time Temp Pulse Resp B/P (MAP) Pulse Ox O2 Delivery O2 Flow Rate FiO2 05/14/17 22:59 96 Nasal Cannula 2.0 05/14/17 22:07 86 20 91/59 (70) 05/14/17 21:43 97.8 97.8 Lab Values Laboratory Tests Test 05/14/17 21:50 White Blood Count 7.2 x10^3/uL (4.0-11.0) Red Blood Count 4.51 x10^6/uL (4.30-5.70) Hemoglobin 13.6 g/dL (13.0-17.5) Hematocrit 40.6 % (39.0-53.0) Mean Corpuscular Volume 90 fL (79-100) Mean Corpuscular Hemoglobin 30 pg (25-35) Mean Corpuscular Hemoglobin Concent 34 g/dL (31-37) Red Cell Distribution Width 15.1 % (11.5-14.5) H Platelet Count 154 x10^3/uL (140-400) Neutrophils (%) (Auto) 72 % (31-73) Lymphocytes (%) (Auto) 16 % (24-48) L Monocytes (%) (Auto) 9 % (0-9) Eosinophils (%) (Auto) 3 % (0-3) Basophils (%) (Auto) 1 % (0-3) Neutrophils # (Auto) 5.2 x10^3uL (1.8-7.7) Lymphocytes # (Auto) 1.1 x10^3/uL (1.0-4.8) Monocytes # (Auto) 0.6 x10^3/uL (0.0-1.1) Eosinophils # (Auto) 0.2 x10^3/uL (0.0-0.7) Basophils # (Auto) 0.1 x10^3/uL (0.0-0.2) Prothrombin Time 12.5 SEC (11.7-14.0) Prothrombin Time INR 1.0 (0.8-1.1) PTT 28 SEC (24-38) Sodium Level 140 mmol/L (136-145) Potassium Level 3.5 mmol/L (3.5-5.1) Chloride Level 100 mmol/L (98-107) Carbon Dioxide Level 32 mmol/L (21-32) Anion Gap 8 (6-14) Blood Urea Nitrogen 18 mg/dL (8-26) Creatinine 0.8 mg/dL (0.7-1.3) Estimated GFR (Cockcroft-Gault) 96.4 BUN/Creatinine Ratio 23 (6-20) H Glucose Level 139 mg/dL (70-99) H Calcium Level 9.2 mg/dL (8.5-10.1) Magnesium Level 1.8 mg/dL (1.8-2.4) Total Bilirubin 0.3 mg/dL (0.2-1.0) Aspartate Amino Transferase (AST) 15 U/L (15-37) Alanine Aminotransferase (ALT) 26 U/L (16-63) Alkaline Phosphatase 62 U/L (46-116) Troponin I Quantitative < 0.017 ng/mL (0.000-0.055) EO-Qkz-K-Type Natriuretic Peptide 1564 pg/mL (0-124) H Total Protein 7.0 g/dL (6.4-8.2) Albumin 3.9 g/dL (3.4-5.0) Albumin/Globulin Ratio 1.3 (1.0-1.7) Laboratory Tests 05/14/17 21:50 Laboratory Tests 05/14/17 21:50 EKG EKG Sinus rhythm at 90 beats per minutes with multiple PVCs but no obvious ST elevation or depression and normal T waves Radiology/Procedures Radiology/Procedures Normal mediastinum borderline cardiomegaly no obvious free air pneumothorax or opacity with possible interstitial edema. Course & Med Decision Making Course & Med Decision Making Patient was given a steroid which she said has almost resolved his flushed feeling. They breathing treatment as well which made him feel better and he had improved aeration of his lungs on repeat exam. His BNP is the same as what it was last year when drawn and he does not appear to be in pulmonary edema and his oxygen is in the mid 90s on his baseline 2 L. He looks well and is feeling back to baseline status seen a reason for admission at this point so I will discharge him in stable condition and told to follow up with primary care provider in the next 2-3 days and come back to the ED sooner with any new worsening pain shortness of breath or other general concerns. Dragon Disclaimer Dragon Disclaimer This electronic medical record was generated, in whole or in part, using a voice recognition dictation system. Departure Departure Impression: Primary Impression: COPD with exacerbation Additional Impression: Elevated brain natriuretic peptide (BNP) level Disposition: 01 HOME, SELF-CARE Condition: STABLE Referrals: ORLY DASH MD (PCP) Patient Instructions: Chronic Obstructive Pulmonary Disease Exacerbation Scripts Prednisone (PREDNISONE) 50 Mg Tablet 1 TAB PO DAILY, #3 TAB Prov: ORLY AREVALO DO 05/14/17 Problem Qualifiers ORLY AREVALO DO May 14, 2017 23:17
--- NOTE | 2017-05-15 06:30 | EKG ---
[facility] [address] [place] [address] Test Date: 2017-05-14 Test Time: 21:54:23 Pat Name: PASHA UGARTE Department: Room: Gender: M Hospital Internship: : 1950 Requested By: ORLY AREVALO Order Number: [id number] Reading MD: Measurements Intervals [place] Rate: 90 P: 34 TX: 182 QRS: -21 QRSD: 142 T: -22 QT: 412 QTc: 509 Interpretive Statements SINUS RHYTHM COMPLEX(ES) WITH ABERRANT INTRAVENTRICULAR CONDUCTION VENTRICULAR PREMATURE COMPLEX(ES) S1,S2,S3 PATTERN NON SPECIFIC INTRAVENTRICULAR BLOCK RI6.01 Unconfirmed report No previous ECG available for comparison
--- NOTE | 2017-05-15 07:50 | RAD ---
Chest x-ray Indication: Short of breath Technique: Portable AP upright chest x-ray Comparison: Previous study from CT chest from 02/18/2017 Findings: Heart is top normal in size. Lungs are hyperinflated with emphysematous changes. Bibasilar scarring noted. No pneumothorax or pleural effusion. Visualized bony thorax is within normal limits. Impression: Findings of COPD. No acute cardiopulmonary process.
== END 2017-05-14 23:26 | disposition home or self-care (01) ==
LOC: ER 21:26
DX: J44.1 Chronic obstructive pulmonary disease with (acute) exacerbation (principal); E11.9 Type 2 diabetes mellitus without complications; E78.00 Pure hypercholesterolemia, unspecified; I11.9 Hypertensive heart disease without heart failure; R79.89 Other specified abnormal findings of blood chemistry
CPT/HCPCS: 36415; 71010; 80053; 83735; 83880; 84484; 85025; 85610; 85730; 93005; 94250; 94640; 96374; 99285; J2930; J7620

== ENCOUNTER 2017-05-19 18:29 | Inpatient (IN) | payer MEDICARE, BC ==
[~2017-05-19] VITALS: Ht 180.3 cm; Wt 104.4 kg
[~2017-05-19 18:29] MED LIST changes: +PRED50TA PO
[2017-05-19 18:56] LABS: BASO % 1 % (0-3); EOS % 3 % (0-3); HEMATOCRIT 42.3 % (39.0-53.0); HEMOGLOBIN 14.3 g/dL (13.0-17.5); LYMPH # 1.5 x10^3/uL (1.0-4.8); LYMPH % 19 % (24-48); MEAN CORPUSCULAR HEMOGLOBIN 31 pg (25-35); MEAN CORPUSCULAR HGB CONC 34 g/dL (31-37); MEAN CORPUSCULAR VOLUME 90 fL (79-100); MONO % 6 % (0-9); NEUT % 71 % (31-73); PLATELET COUNT 179 x10^3/uL (140-400); RED CELL DISTRIBUTION WIDTH 14.4 % (11.5-14.5)
[2017-05-19 19:03] LABS: PROTHROMBIN TIME PATIENT 12.8 SEC (11.7-14.0)
[2017-05-19 19:05] LABS: CALCIUM 9.6 mg/dL (8.5-10.1); CREATININE 0.8 mg/dL (0.7-1.3); GFR 96.4; POTASSIUM 3.6 mmol/L (3.5-5.1)
[2017-05-19 19:11] LABS: ALBUMIN 3.7 g/dL (3.4-5.0); DIRECT BILIRUBIN 0.1 mg/dL (0.0-0.2); TOTAL BILIRUBIN 0.4 mg/dL (0.2-1.0); TOTAL PROTEIN 7.3 g/dL (6.4-8.2)
[2017-05-19 19:30] LABS: BILIRUBIN,URINE NEGATIVE (NEG); GLUCOSE,URINE NEGATIVE (NEG); NITRITE,URINE NEGATIVE (NEG); PH,URINE 7.5; PROTEIN,URINE NEGATIVE (NEG-TRACE); UROBILINOGEN,URINE 0.2 mg/dL (0.2 mg/dL)
[2017-05-19] MEDS ORDERED: ONDANSETRON PF 4 MG/2 ML VIAL. IV ONE (19:30)
[2017-05-19 19:37] LABS: BACTERIA,URINE FEW /HPF (0-FEW); RBC,URINE 0 /HPF (0-2); SQUAMOUS EPITHELIAL CELL,UR OCC /LPF
--- NOTE | 2017-05-19 19:42 | PHYS DOC ---
Past Medical History Past Medical History: COPD, Diabetes-Type II, High Cholesterol, Heart Disease, Hypertension Additional Past Medical Histor: enlarged prostate, UMBILICAL HERNIA Past Surgical History: Other Additional Past Surgical Histo: BACK Alcohol Use: None Drug Use: None Adult General Chief Complaint Chief Complaint: BLOODY STOOL HPI HPI 66-year-old male presenting to the emergency department today with blood in his stools. He reports for the past 24 hours she is been having dark red bowel movements. He also reports having diarrhea. He recently was using NSAIDs for arthritis. He has some lower abdominal pain that is sharp moderate intermittent and without leaving factors. Otherwise he denies syncope or lightheadedness fevers or chills. He reports having 8 bowel movements with blood today. Review of systems is negative for chest pain shortness of breath. pos for nausea with nonbloody nonbilious emesis. All other review of systems is negative unless otherwise noted in history of present illness. ED course: 66-year-old male presenting to the emergency department today with GI bleed. Initial vital signs afebrile with mildly elevated heart rate. Pertinent physical examination findings show a soft nontender abdomen. Normal bowel sounds. Nontympanic to percussion. Blood work obtained. Type and screen obtained. IV established. Small bolus of IV fluids administered. CT the abdomen pelvis shows acute diverticulitis. IV Flagyl and ciprofloxacin administered. I discussed the case with Dr. Salamanca who will take the patient for admission. pt is npo. consult to GI placed. H/h within nl limits. Review of Systems Review of Systems SEE ABOVE. Current Medications Current Medications Current Medications Medications (Trade) Dose Ordered Sig/Sarah Start Time Stop Time Status Last Admin Dose Admin Ciprofloxacin/ Dextrose 200 ml @ 200 mls/hr 1X ONCE 05/19/17 20:30 05/19/17 21:29 Info (Do NOT chart on this entry -- for MONITORING) 1 each PRN DAILY PRN 05/19/17 20:00 05/21/17 19:59 Iohexol (Omnipaque 300 Mg/ml) 75 ml 1X ONCE 05/19/17 20:00 05/19/17 20:07 DC 05/19/17 20:01 75 ML Metronidazole 100 ml @ 100 mls/hr 1X ONCE 05/19/17 20:30 05/19/17 21:29 Morphine Sulfate 2 mg PRN Q2HR PRN 05/19/17 20:00 05/20/17 19:59 Ondansetron HCl (Zofran) 4 mg PRN Q8HRS PRN 05/19/17 20:00 05/20/17 19:59 Sodium Chloride 1,000 ml @ 75 mls/hr 1X ONCE 05/19/17 21:00 05/20/17 10:19 Allergies Allergies Allergies Coded Allergies Type Severity Reaction Last Updated Verified No Known Drug Allergies 02/18/15 No Physical Exam Physical Exam SEE ABOVE Constitutional: Well developed, well nourished, no acute distress, non-toxic appearance. [] HENT: Normocephalic, atraumatic, bilateral external ears normal, oropharynx moist, no oral exudates, nose normal. Eyes: PERRLA, EOMI, conjunctiva normal, no discharge. [] Neck: Normal range of motion, no tenderness, supple, no stridor. [] Cardiovascular:Heart rate regular rhythm, no murmur Lungs & Thorax: Bilateral breath sounds clear to auscultation [] Abdomen: Bowel sounds normal, soft, no tenderness, no masses, no pulsatile masses. SEE ABOVE Rectal exam performed no obvious hemorrhoids. Stool is a clear green yellow. No gross blood on rectal exam. Fecal occult blood testing sent. Skin: Warm, dry, no erythema, no rash. [] Back: No tenderness, no CVA tenderness. Extremities: No tenderness, no cyanosis, no clubbing, ROM intact, no edema. Neurologic: Alert and oriented X 3, normal motor function, normal sensory function, no focal deficits noted. [] Psychologic: Affect normal, judgement normal, mood normal. [] Current Patient Data Vital Signs Vital Signs Date Time Temp Pulse Resp B/P (MAP) Pulse Ox O2 Delivery O2 Flow Rate FiO2 05/19/17 18:43 97.6 95 22 144/80 (101) 96 Nasal Cannula 2.0 97.6 Lab Values Laboratory Tests Test 05/19/17 18:47 05/19/17 19:15 05/19/17 19:35 White Blood Count 8.0 x10^3/uL (4.0-11.0) Red Blood Count 4.70 x10^6/uL (4.30-5.70) Hemoglobin 14.3 g/dL (13.0-17.5) Hematocrit 42.3 % (39.0-53.0) Mean Corpuscular Volume 90 fL (79-100) Mean Corpuscular Hemoglobin 31 pg (25-35) Mean Corpuscular Hemoglobin Concent 34 g/dL (31-37) Red Cell Distribution Width 14.4 % (11.5-14.5) Platelet Count 179 x10^3/uL (140-400) Neutrophils (%) (Auto) 71 % (31-73) Lymphocytes (%) (Auto) 19 % (24-48) L Monocytes (%) (Auto) 6 % (0-9) Eosinophils (%) (Auto) 3 % (0-3) Basophils (%) (Auto) 1 % (0-3) Neutrophils # (Auto) 5.7 x10^3uL (1.8-7.7) Lymphocytes # (Auto) 1.5 x10^3/uL (1.0-4.8) Monocytes # (Auto) 0.5 x10^3/uL (0.0-1.1) Eosinophils # (Auto) 0.2 x10^3/uL (0.0-0.7) Basophils # (Auto) 0.0 x10^3/uL (0.0-0.2) Prothrombin Time 12.8 SEC (11.7-14.0) Prothrombin Time INR 1.0 (0.8-1.1) PTT 27 SEC (24-38) Sodium Level 139 mmol/L (136-145) Potassium Level 3.6 mmol/L (3.5-5.1) Chloride Level 98 mmol/L (98-107) Carbon Dioxide Level 33 mmol/L (21-32) H Anion Gap 8 (6-14) Blood Urea Nitrogen 19 mg/dL (8-26) Creatinine 0.8 mg/dL (0.7-1.3) Estimated GFR (Cockcroft-Gault) 96.4 Glucose Level 174 mg/dL (70-99) H Calcium Level 9.6 mg/dL (8.5-10.1) Total Bilirubin 0.4 mg/dL (0.2-1.0) Direct Bilirubin 0.1 mg/dL (0.0-0.2) Aspartate Amino Transferase (AST) 13 U/L (15-37) L Alanine Aminotransferase (ALT) 20 U/L (16-63) Alkaline Phosphatase 57 U/L (46-116) Total Protein 7.3 g/dL (6.4-8.2) Albumin 3.7 g/dL (3.4-5.0) Urine Collection Type Unknown Urine Color Yellow Urine Clarity Clear Urine pH 7.5 Urine Specific [place] 1.020 Urine Protein Negative mg/dL (NEG-TRACE) Urine Glucose (UA) Negative mg/dL (NEG) Urine Ketones (Stick) Negative mg/dL (NEG) Urine Blood Negative (NEG) Urine Nitrite Negative (NEG) Urine Bilirubin Negative (NEG) Urine Urobilinogen Dipstick 0.2 mg/dL (0.2 mg/dL) Urine Leukocyte Esterase Small (NEG) Urine RBC 0 /HPF (0-2) Urine WBC 1-4 /HPF (0-4) Urine Squamous Epithelial Cells Occ /LPF Urine Bacteria Few /HPF (0-FEW) Urine Mucus Marked /LPF Stool Occult Blood Positive (NEG) Laboratory Tests 05/19/17 18:47 Laboratory Tests 05/19/17 18:47 EKG EKG [] Radiology/Procedures Radiology/Procedures [] Course & Med Decision Making Course & Med Decision Making Pertinent Labs and Imaging studies reviewed. (See chart for details) [] Dragon Disclaimer Dragon Disclaimer This electronic medical record was generated, in whole or in part, using a voice recognition dictation system. Departure Departure Impression: Primary Impression: Bloody stool Disposition: ADMITTED INPATIENT Admitting Physician: Benedict Salamanca Condition: STABLE Referrals: BENEDICT SALAMANCA MD (PCP) MARY BETH RANKIN MD May 19, 2017 19:42
[2017-05-19 19:45] LABS: NEG OBC FOB NEG; POS OBC FOB POS
[2017-05-19] MEDS ORDERED: IOHEXOL 300 MG/ML 75 ML VIAL IV ONE (20:00)
[2017-05-19] MEDS ORDERED: CONTRAST GIVEN MC PRN (20:00)
[2017-05-19] MEDS ORDERED: IV NORMAL SALINE 500ML BAG 500 ML IV ONE (20:00)
[2017-05-19] MEDS ORDERED: ONDANSETRON PF 4 MG/2 ML VIAL. IV PRN (20:00)
--- NOTE | 2017-05-19 20:09 | RAD ---
Indication: Abdominal pain and bloody stools. Axial imaging through the abdomen and pelvis was performed after the administration of intravenous contrast. One or more of the following individualized dose reduction techniques were utilized for this examination: 1. Automated exposure control 2. Adjustment of the mA and/or kV according to patient size 3. Use of iterative reconstruction technique No prior studies are available for comparison. Lung bases are clear. There is generalized low density throughout the liver consistent with fatty infiltration. No discrete liver mass is identified. There are small stones within the gallbladder. No biliary duct dilatation is seen. The pancreas and spleen are unremarkable. No adrenal mass is detected. Small cortical low densities are noted in both kidneys, too small to characterize but likely cysts. There appear to be small nonobstructing calculi within the left kidney. Aorta is heavily calcified but nonaneurysmal. There is a small fat-containing umbilical hernia. The small and large bowel loops are normal caliber. The appendix is unremarkable. There is a long segment of wall thickening involving the sigmoid colon with perisigmoidal inflammation. There are diverticuli present and findings are consistent with acute diverticulitis. No abscess formation or bowel obstruction is seen. There appears to be a diverticulum arising from the right bladder base. The prostate is enlarged. IMPRESSION: 1. Findings suggestive of acute diverticulitis. No abscess formation or bowel obstruction is identified. 2. Fatty infiltration of the liver and cholelithiasis. 3. Fat-containing umbilical hernia. 4. Prostatic enlargement. 5. Bladder diverticulum. Electronically signed by: David Deleon MD (05/19/2017 8:06 PM) [facility]
[2017-05-19] MEDS ORDERED: CIPROFLOXACIN 400MG PREMIX 200 ML IV ONE (20:30)
[2017-05-19] MEDS ORDERED: IV NORMAL SALINE 1000ML BAG 1,000 ML IV ONE (21:00)
[2017-05-19 22:30] VITALS: BP 120/64
[2017-05-19] MEDS ORDERED: DICL50TA4 PO (22:34)
[2017-05-20] MEDS: ALBUTEROL SULFATE 2.5 MG/3 ML NEBU. NEB SCH ×5 (00:02→19:30)
[2017-05-20 03:53] VITALS: BP 103/46
[2017-05-20] MEDS: MORPHINE SULFATE 2 MG/ML DISP.SYRIN. IV PRN ×2 (05:20→15:45)
--- NOTE | 2017-05-20 06:30 | EKG ---
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
[2017-05-20 07:00] VITALS: BP 114/57
[2017-05-20] MEDS: IV NORMAL SALINE 1000ML BAG 1,000 ML IV SCH ×2 (09:18→17:30)
[2017-05-20 09:39] LABS: BASO # 0.1 x10^3/uL (0.0-0.2); BASO % 1 % (0-3); EOS % 3 % (0-3); HEMOGLOBIN 13.4 g/dL (13.0-17.5); LYMPH # 1.2 x10^3/uL (1.0-4.8); LYMPH % 17 % (24-48); MEAN CORPUSCULAR HEMOGLOBIN 30 pg (25-35); MEAN CORPUSCULAR HGB CONC 33 g/dL (31-37); MEAN CORPUSCULAR VOLUME 90 fL (79-100); MONO % 8 % (0-9); NEUT % 71 % (31-73); PLATELET COUNT 158 x10^3/uL (140-400); RED BLOOD COUNT 4.46 x10^6/uL (4.30-5.70); RED CELL DISTRIBUTION WIDTH 14.5 % (11.5-14.5); WHITE BLOOD COUNT 6.9 x10^3/uL (4.0-11.0)
--- NOTE | 2017-05-20 09:43 | PDOC2 ---
GI CONSULT Reason For Consult: GI Bleed HPI: HPI: 66 y/o male admitted through ER. Awoke yesterday at 4:30 a.m. w/ "stomach cramps," had a normal stool. About 20 minutes later, had more cramps and urge to stool but passed only red blood (without stool). This occurred several more times prompting ER evaluation. Labs significant for normal Hgb (14.3), normal INR and plt, normal BUN and Cr. Hemoccult was positive. CT A/P showed sigmoid diverticulitis, fatty liver, cholelithiasis, umbilical hernia, enlarged prostate and bladder diverticulum. In ER was given IV metronidazole x 1 and IV Cipro x 1 which caused UE erythema and itching (now listed as allergy), now on Rocephin and metronidazole IV. Still feels somewhat crampy, but has not had recurrent bleeding. Would like to eat and discharge as soon as possible. No n/v, change in appetite, weight loss. Re: GERD, only can tell me "not really ," but denies need to use acid-reducing medications at home. Has h/o "fissure" which bleed from time to time w/ straining; these symptoms were much different. Takes ASA QD, also started diclofenac 1 week ago for arthritis pain. No previous EGD. Colonoscopy in 2014 showed adenomatous polyp in the sigmoid colon. At 3 weeks ago had surgery because "intestines were grown together," says part of bowel removed along w/ appendix. PMH: PMH: ischemic cardiomyopathy, HTN, HLD, COPD, CONSUELO, DM, BPH, OA, depression/anxiety, diverticulosis, adenomatous colon polyp, skin cancer/removal, back surgery, ? bowel resection/appendectomy at 3 weeks ago (?pyloric stenosis) FH: Family History: No pertinent hx Social History: Smoke: 1 pack per day ALCOHOL: none Drugs: None ROS: GEN: Denies fevers, chills, sweats HEENT: Denies blurred vision, sore throat CV: Denies chest pain RESP: Denies shortness of air, cough GI: Per HPI : Denies hematuria, dysuria ENDO: Denies weight changes NEURO: Denies confusion, dizziness MSK: +arthritis pain SKIN: Denies jaundice, pruritus Vitals: Vitals: Vital Signs Date Time Temp Pulse Resp B/P (MAP) Pulse Ox O2 Delivery O2 Flow Rate FiO2 05/20/17 09:10 96 Nasal Cannula 2.0 05/20/17 07:00 97.6 74 19 114/57 (76) 97.6 Labs: Labs: Laboratory Tests Test 05/19/17 18:47 05/19/17 19:15 05/19/17 19:35 White Blood Count 8.0 x10^3/uL (4.0-11.0) Red Blood Count 4.70 x10^6/uL (4.30-5.70) Hemoglobin 14.3 g/dL (13.0-17.5) Hematocrit 42.3 % (39.0-53.0) Mean Corpuscular Volume 90 fL (79-100) Mean Corpuscular Hemoglobin 31 pg (25-35) Mean Corpuscular Hemoglobin Concent 34 g/dL (31-37) Red Cell Distribution Width 14.4 % (11.5-14.5) Platelet Count 179 x10^3/uL (140-400) Neutrophils (%) (Auto) 71 % (31-73) Lymphocytes (%) (Auto) 19 % (24-48) Monocytes (%) (Auto) 6 % (0-9) Eosinophils (%) (Auto) 3 % (0-3) Basophils (%) (Auto) 1 % (0-3) Neutrophils # (Auto) 5.7 x10^3uL (1.8-7.7) Lymphocytes # (Auto) 1.5 x10^3/uL (1.0-4.8) Monocytes # (Auto) 0.5 x10^3/uL (0.0-1.1) Eosinophils # (Auto) 0.2 x10^3/uL (0.0-0.7) Basophils # (Auto) 0.0 x10^3/uL (0.0-0.2) Prothrombin Time 12.8 SEC (11.7-14.0) Prothromb Time International Ratio 1.0 (0.8-1.1) Activated Partial Thromboplast Time 27 SEC (24-38) Sodium Level 139 mmol/L (136-145) Potassium Level 3.6 mmol/L (3.5-5.1) Chloride Level 98 mmol/L (98-107) Carbon Dioxide Level 33 mmol/L (21-32) Anion Gap 8 (6-14) Blood Urea Nitrogen 19 mg/dL (8-26) Creatinine 0.8 mg/dL (0.7-1.3) Estimated GFR (Cockcroft-Gault) 96.4 Glucose Level 174 mg/dL (70-99) Calcium Level 9.6 mg/dL (8.5-10.1) Total Bilirubin 0.4 mg/dL (0.2-1.0) Direct Bilirubin 0.1 mg/dL (0.0-0.2) Aspartate Amino Transf (AST/SGOT) 13 U/L (15-37) Alanine Aminotransferase (ALT/SGPT) 20 U/L (16-63) Alkaline Phosphatase 57 U/L (46-116) Total Protein 7.3 g/dL (6.4-8.2) Albumin 3.7 g/dL (3.4-5.0) Urine Collection Type Unknown Urine Color Yellow Urine Clarity Clear Urine pH 7.5 Urine Specific [place] 1.020 Urine Protein Negative mg/dL (NEG-TRACE) Urine Glucose (UA) Negative mg/dL (NEG) Urine Ketones (Stick) Negative mg/dL (NEG) Urine Blood Negative (NEG) Urine Nitrite Negative (NEG) Urine Bilirubin Negative (NEG) Urine Urobilinogen Dipstick 0.2 mg/dL (0.2 mg/dL) Urine Leukocyte Esterase Small (NEG) Urine RBC 0 /HPF (0-2) Urine WBC 1-4 /HPF (0-4) Urine Squamous Epithelial Cells Occ /LPF Urine Bacteria Few /HPF (0-FEW) Urine Mucus Marked /LPF Stool Occult Blood Positive (NEG) Allergies: Coded Allergies: ciprofloxacin (Verified Allergy, Unknown, 05/19/17) Medications: Current Medications Medications (Trade) Dose Ordered Sig/Sarah Route PRN Reason Start Time Stop Time Status Last Admin Dose Admin Ondansetron HCl (Zofran) 4 mg 1X ONCE IV 05/19/17 19:30 05/19/17 19:31 DC 05/19/17 19:19 Sodium Chloride 500 ml @ 500 mls/hr 1X ONCE IV 05/19/17 20:00 05/19/17 20:59 DC 05/19/17 20:02 Iohexol (Omnipaque 300 Mg/ml) 75 ml 1X ONCE IV 05/19/17 20:00 05/19/17 20:07 DC 05/19/17 20:01 Morphine Sulfate 2 mg PRN Q2HR PRN IV PAIN 05/19/17 20:00 05/20/17 19:59 05/20/17 05:20 Sodium Chloride 1,000 ml @ 75 mls/hr 1X ONCE IV 05/19/17 21:00 05/20/17 10:19 05/19/17 22:35 Metronidazole 100 ml @ 100 mls/hr 1X ONCE IV 05/19/17 20:30 05/19/17 21:29 DC 05/19/17 22:39 Ciprofloxacin/ Dextrose 200 ml @ 200 mls/hr 1X ONCE IV 05/19/17 20:30 05/19/17 21:32 DC 05/19/17 20:58 Ceftriaxone Sodium 50 ml @ 100 mls/hr 1X ONCE IV 05/19/17 22:00 05/19/17 22:29 DC 05/19/17 23:35 Albuterol Sulfate (Ventolin Neb Soln) 2.5 mg RTQID NEB 05/19/17 23:30 05/20/17 09:08 Metronidazole 100 ml @ 100 mls/hr Q8HRS IV 05/20/17 09:30 05/20/17 09:18 Sodium Chloride 1,000 ml @ 125 mls/hr Q8H IV 05/20/17 09:30 05/20/17 09:18 Imaging: Imaging: CT A/P IMPRESSION: 1. Findings suggestive of acute diverticulitis. No abscess formation or bowel obstruction is identified. 2. Fatty infiltration of the liver and cholelithiasis. 3. Fat-containing umbilical hernia. 4. Prostatic enlargement. 5. Bladder diverticulum. PE: GEN: NAD, sitting on edge of bed HEENT: Atraumatic, PERRL LUNGS: decreased, nasal cannula HEART: RRR ABD: NABS, S/ND, vague discomfort BLQ (no guarding) EXTREMITY: No edema SKIN: No rashes, no jaundice NEURO/PSYCH: A & O 3 A/P: A/P: Abd pain (improved), bloody stools (resolved) -Hgb and BUN WNL, hemoccult positive Abnormal CT -sigmoid diverticulitis -also noted fatty liver and cholelithiasis CRC screen, h/o adenomatous polyp -colonoscopy in 2015 w/ Dr. Urbano NSAID use Cholelithiasis -likely incidental finding H/o abd surgery (3 weeks of age) -- Will review w/ Dr. Urbano but seems reasonable to try clears. Continue antibiotics. Will add empiric acid-manager digital. BLANCA BAH May 20, 2017 09:43
[2017-05-20 09:50] LABS: CALCIUM 8.8 mg/dL (8.5-10.1); CREATININE 0.6 mg/dL (0.7-1.3); GFR 134.4; POTASSIUM 3.8 mmol/L (3.5-5.1)
[2017-05-20] MEDS ORDERED: FAMOTIDINE 20 MG/2 ML VIAL IVP ONE (10:00)
[2017-05-20 11:05] VITALS: BP 105/67
--- NOTE | 2017-05-20 13:32 | PDOC1 ---
H & P H&P HPI: Mr. Pickard is a 66 y/o male who was admitted with blood diarrhea x about 6 episodes starting since about 4 AM yesterday. He notes that he was awakened from sleep with abdominal cramping and continued to have cramping and bloody diarrhea until presenting to the ED. He denies history of similar symptoms. In ED, hgb was normal and hemocult was positive. He notes that he had a normal colonoscopy with Dr. Urbano within the last [address] showed findings consistent with acute diverticulitis, along with gallstones, an umbilical hernia with fatty tissue inside, enlarged prostate and fatty liver. He has been treated with Flagyl and Cipro IV x 1 then had rash and itching with Cipro, so was switched to Ceftriaxone. He denies any further bloody bowel movements and abdominal pain is improved from yesterday. He is "starving" and "probably doesn' t want to stay" overnight in the hospital, but he will "see how (he) feels". PMH: ischemic cardiomyopathy, HTN, HLD, COPD, CONSUELO, DM2, BPH, OA, depression/anxiety, diverticulosis, adenomatous colon polyp, skin cancer/removal, back surgery, ? bowel resection/appendectomy at 3 weeks ago (?pyloric stenosis) Family History: No pertinent hx Smoke: 1 pack per day ALCOHOL: none Drugs: None ROS: GEN: Denies fevers, chills, sweats HEENT: Negative CV: Denies chest pain RESP: Denies shortness of air, cough; notes some wheezing GI: Diarrhea resolved, nausea and abdominal pain improved NEURO: Denies confusion, dizziness; admits peripheral neuropathy, chronic MSK: +arthritis PE: VSS Gen: Alert, irritable, no acute distress HEENT: pupils equal, round Skin: No jaundice Heart: RRR, no murmurs Lungs: Few wheezes throughout, good air movement, no rales Abd: Soft, nontender, nondistended, umbilical hernia Ext: No cyanosis or edema Psych: Oriented A/P: 1. Acute diverticulitis - improving, cont Ceftriaxone and Flagyl; GI consulted. Hgb stable. Can progress to CLD when ok per GI and DC pending symptom improvement and ability to tolerate PO 2. DM2, HTN, COPD, neuropathy, chronic back pain, cardiomyopathy - continue home meds Dispo: d/c today or tomorrow pending clinical improvement and patient preference. ALISIA OLVERA MD May 20, 2017 13:32
[2017-05-20 15:01] VITALS: BP 122/69
[2017-05-20] MEDS ORDERED: NON FORMULARY ITEM (Albuterol Sulfate (Proair Hfa Inhaler) 2 PUFF) IH PRN (18:30)
[2017-05-20] MEDS ORDERED: traMADol 50 MG TABLET PO PRN (18:30)
[2017-05-20] MEDS: DICLOFENAC SODIUM 25 MG TABLET.DR PO SCH (19:00)
--- NOTE | 2017-05-20 19:21 | PDOC2 ---
CONSULT Date of Consult Date of Consult DATE: 05/20/17 TIME: 19:09 Reason for Consult Reason for Consult: PVCs Referring Physician Referring Physician: Dr. Do Identification/Chief Complaint Chief Complaint GI bleed Problems: History of Present Illness Reason for Visit: This patient is a 66-year-old gentleman that has an ischemic cardiomyopathy and advanced COPD. He has chronic PVCs. He came in with a GI bleed and after admission he started having frequent PVCs and he had some runs of nonsustained V. tach up to 10 beats. The patient was asymptomatic with them. The patient was not receiving his cardiac and pulmonary metastases to being nothing by mouth. At the time that I saw him he denies having any chest pains, he denies having any palpitations, he denies having any significant dyspnea, more than usual. Past Medical History Cardiovascular: CAD, CHF, HTN, SC, Hyperlipidemia Pulmonary: Bronchitis, COPD GI: GERD Social History 1 pack per day ALCOHOL: none Drugs: None Current Problem List Problem List Problems Medical Problems: (1) Bloody stool Status: Acute Current Medications Current Medications Current Medications Ondansetron HCl (Zofran) 4 mg 1X ONCE IV Last administered on 05/19/17 19:19 ; Start 05/19/17 at 19:30; Stop 05/19/17 at 19:31; Status DC Sodium Chloride 500 ml @ 500 mls/hr 1X ONCE IV Last administered on 20:02; Start 05/19/17 at 20:00; Stop 05/19/17 at 20:59; Status DC Iohexol (Omnipaque 300 Mg/ml) 75 ml 1X ONCE IV Last administered on 05/19/17 20:01; Start 05/19/17 at 20:00; Stop 05/19/17 at 20:07; Status DC Info (Do NOT chart on this entry -- for MONITORING) 1 each PRN DAILY PRN MC SEE COMMENTS; Start 05/19/17 at 20:00; Stop 05/21/17 at 19:59 Ondansetron HCl (Zofran) 4 mg PRN Q8HRS PRN IV NAUSEA/VOMITING; Start 05/19/17 at 20:00; Stop 05/20/17 at 19:59 Morphine Sulfate 2 mg PRN Q2HR PRN IV PAIN Last administered on 10/9/17at 15:45 ; Start 05/19/17 at 20:00; Stop 05/20/17 at 19:59 Sodium Chloride 1,000 ml @ 75 mls/hr 1X ONCE IV Last administered on 22:35; Start 05/19/17 at 21:00; Stop 05/20/17 at 10:19; Status DC Metronidazole 100 ml @ 100 mls/hr 1X ONCE IV Last administered on 05/19/17 22:39; Start 05/19/17 at 20:30; Stop 05/19/17 at 21:29; Status DC Ciprofloxacin/ Dextrose 200 ml @ 200 mls/hr 1X ONCE IV Last administered on 05/19/17 20:58; Start 05/19/17 at 20:30; Stop 05/19/17 at 21:32; Status DC Ceftriaxone Sodium 50 ml @ 100 mls/hr 1X ONCE IV Last administered on 23:35; Start 05/19/17 at 22:00; Stop 05/19/17 at 22:29; Status DC Albuterol Sulfate (Ventolin Neb Soln) 2.5 mg RTQID NEB Last administered on 16:07; Start 05/19/17 at 23:30 Metronidazole 100 ml @ 100 mls/hr Q8HRS IV Last administered on 05/20/17 18: 30; Start 05/20/17 at 09:30 Sodium Chloride 1,000 ml @ 125 mls/hr Q8H IV Last administered on 05/20/17 17 :30; Start 05/20/17 at 09:30 Ceftriaxone Sodium 1 gm/ Sodium Chloride 50 ml @ 100 mls/hr Q24H IV ; Start at 22:00 Famotidine (Pepcid) 20 mg 1X ONCE IVP Last administered on 05/20/17 10:00; Start 05/20/17 at 10:00; Stop 05/20/17 at 10:01; Status DC Famotidine (Pepcid) 20 mg QHS PO ; Start 05/20/17 at 21:00 Aspirin (Children'S Aspirin) 81 mg DAILY PO ; Start 05/21/17 at 09:00 Carvedilol (Coreg) 6.25 mg BID PO ; Start 05/20/17 at 21:00 Hydrochlorothiazide (Hydrodiuril) 25 mg DAILY PO ; Start 05/21/17 at 09:00 Acetaminophen/ Hydrocodone Bitart (Lortab 7.5/325) 1 tab PRN Q6HRS PRN PO PAIN ; Start 05/20/17 at 18:30 Lisinopril (Prinivil) 20 mg DAILY PO ; Start 05/21/17 at 09:00 Metformin HCl (Glucophage) 1,000 mg BIDWMEALS PO ; Start 05/22/17 at 08:00 Tamsulosin HCl (Flomax) 0.4 mg DAILY PO ; Start 05/21/17 at 09:00 Tramadol HCl (Ultram) 50 mg PRN Q6HRS PRN PO PAIN; Start 05/20/17 at 18:30 Non-Formulary Medication 2 puff QIDPRN PRN IH SHORTNESS OF BREATH; Start at 18:30; Status UNV Non-Formulary Medication 2 puff BID IH ; Start 05/20/17 at 21:00; Status UNV Diclofenac Sodium (Voltaren) 50 mg BIDWMEALS PO ; Start 05/20/17 at 19:00 Gabapentin (Neurontin) 300 mg TID PO ; Start 05/20/17 at 21:00 Non-Formulary Medication 1 cap DAILY IH ; Start 05/21/17 at 09:00; Status UNV Budesonide (Pulmicort) 0.5 mg RTBID NEB ; Start 05/20/17 at 20:00 Active Scripts Active Reported Diclofenac Sodium 50 Mg Tablet.dr 50 Mg PO BID Hydrocodone-Apap 7.5-325 (Hydrocodone Bit/Acetaminophen) 1 Each Tablet 1 Tab PO PRN Q6HRS PRN Gabapentin 300 Mg Capsule 300 Mg PO TID Tramadol Hcl 50 Mg Tablet 50 Mg PO Q6H PRN Spiriva (Tiotropium [place]) 18 Mcg Cap.w.dev 1 Cap IH DAILY Proair Hfa Inhaler (Albuterol Sulfate) 8.5 Gm Hfa.aer.ad 2 Puff IH QIDPRN PRN Symbicort 160-4.5 Mcg Inhaler (Budesonide/Formoterol Fumarate) 10.2 Gm Hfa.aer.ad 2 Puff IH BID Aspirin 81 Mg Tab.chew 81 Mg PO DAILY Lisinopril 20 Mg Tablet 20 Mg PO DAILY Tamsulosin Hcl 0.4 Mg Cap.er.24h 0.4 Mg PO DAILY Hydrochlorothiazide Tablet (Hydrochlorothiazide) 25 Mg Tablet 25 Mg PO DAILY Carvedilol 6.25 Mg Tablet 6.25 Mg PO BID Metformin Hcl 1,000 Mg Tablet 1,000 Mg PO BID Allergies Allergies: Coded Allergies: ciprofloxacin (Verified Allergy, Unknown, 05/19/17) Physical Exam General: Alert, Oriented X3, Cooperative HEENT: Atraumatic, PERRLA Lungs: Other (breath sounds decreased, mild wheezing. No Rales) Heart: Other (frequent ectopy, S1-S2.) Extremities: No edema Psych/Mental Status: Mental status NL Vitals VITALS Vital Signs Date Time Temp Pulse Resp B/P (MAP) Pulse Ox O2 Delivery O2 Flow Rate FiO2 05/20/17 16:10 Nasal Cannula 2.0 05/20/17 15:01 97.9 69 18 122/69 (86) 95 97.9 Labs Labs Laboratory Tests Test 05/19/17 18:47 05/19/17 19:15 05/19/17 19:35 05/20/17 09:15 White Blood Count 8.0 x10^3/uL (4.0-11.0) 6.9 x10^3/uL (4.0-11.0) Red Blood Count 4.70 x10^6/uL (4.30-5.70) 4.46 x10^6/uL (4.30-5.70) Hemoglobin 14.3 g/dL (13.0-17.5) 13.4 g/dL (13.0-17.5) Hematocrit 42.3 % (39.0-53.0) 40.0 % (39.0-53.0) Mean Corpuscular Volume 90 fL (79-100) 90 fL (79-100) Mean Corpuscular Hemoglobin 31 pg (25-35) 30 pg (25-35) Mean Corpuscular Hemoglobin Concent 34 g/dL (31-37) 33 g/dL (31-37) Red Cell Distribution Width 14.4 % (11.5-14.5) 14.5 % (11.5-14.5) Platelet Count 179 x10^3/uL (140-400) 158 x10^3/uL (140-400) Neutrophils (%) (Auto) 71 % (31-73) 71 % (31-73) Lymphocytes (%) (Auto) 19 % (24-48) 17 % (24-48) Monocytes (%) (Auto) 6 % (0-9) 8 % (0-9) Eosinophils (%) (Auto) 3 % (0-3) 3 % (0-3) Basophils (%) (Auto) 1 % (0-3) 1 % (0-3) Neutrophils # (Auto) 5.7 x10^3uL (1.8-7.7) 4.9 x10^3uL (1.8-7.7) Lymphocytes # (Auto) 1.5 x10^3/uL (1.0-4.8) 1.2 x10^3/uL (1.0-4.8) Monocytes # (Auto) 0.5 x10^3/uL (0.0-1.1) 0.6 x10^3/uL (0.0-1.1) Eosinophils # (Auto) 0.2 x10^3/uL (0.0-0.7) 0.2 x10^3/uL (0.0-0.7) Basophils # (Auto) 0.0 x10^3/uL (0.0-0.2) 0.1 x10^3/uL (0.0-0.2) Prothrombin Time 12.8 SEC (11.7-14.0) Prothromb Time International Ratio 1.0 (0.8-1.1) Activated Partial Thromboplast Time 27 SEC (24-38) Sodium Level 139 mmol/L (136-145) 142 mmol/L (136-145) Potassium Level 3.6 mmol/L (3.5-5.1) 3.8 mmol/L (3.5-5.1) Chloride Level 98 mmol/L (98-107) 104 mmol/L (98-107) Carbon Dioxide Level 33 mmol/L (21-32) 32 mmol/L (21-32) Anion Gap 8 (6-14) 6 (6-14) Blood Urea Nitrogen 19 mg/dL (8-26) 16 mg/dL (8-26) Creatinine 0.8 mg/dL (0.7-1.3) 0.6 mg/dL (0.7-1.3) Estimated GFR (Cockcroft-Gault) 96.4 134.4 Glucose Level 174 mg/dL (70-99) 137 mg/dL (70-99) Calcium Level 9.6 mg/dL (8.5-10.1) 8.8 mg/dL (8.5-10.1) Total Bilirubin 0.4 mg/dL (0.2-1.0) Direct Bilirubin 0.1 mg/dL (0.0-0.2) Aspartate Amino Transf (AST/SGOT) 13 U/L (15-37) Alanine Aminotransferase (ALT/SGPT) 20 U/L (16-63) Alkaline Phosphatase 57 U/L (46-116) Total Protein 7.3 g/dL (6.4-8.2) Albumin 3.7 g/dL (3.4-5.0) Urine Collection Type Unknown Urine Color Yellow Urine Clarity Clear Urine pH 7.5 Urine Specific [place] 1.020 Urine Protein Negative mg/dL (NEG-TRACE) Urine Glucose (UA) Negative mg/dL (NEG) Urine Ketones (Stick) Negative mg/dL (NEG) Urine Blood Negative (NEG) Urine Nitrite Negative (NEG) Urine Bilirubin Negative (NEG) Urine Urobilinogen Dipstick 0.2 mg/dL (0.2 mg/dL) Urine Leukocyte Esterase Small (NEG) Urine RBC 0 /HPF (0-2) Urine WBC 1-4 /HPF (0-4) Urine Squamous Epithelial Cells Occ /LPF Urine Bacteria Few /HPF (0-FEW) Urine Mucus Marked /LPF Stool Occult Blood Positive (NEG) Laboratory Tests Test 05/19/17 19:15 05/19/17 19:35 05/20/17 09:15 Urine Collection Type Unknown Urine Color Yellow Urine Clarity Clear Urine pH 7.5 Urine Specific [place] 1.020 Urine Protein Negative mg/dL (NEG-TRACE) Urine Glucose (UA) Negative mg/dL (NEG) Urine Ketones (Stick) Negative mg/dL (NEG) Urine Blood Negative (NEG) Urine Nitrite Negative (NEG) Urine Bilirubin Negative (NEG) Urine Urobilinogen Dipstick 0.2 mg/dL (0.2 mg/dL) Urine Leukocyte Esterase Small (NEG) Urine RBC 0 /HPF (0-2) Urine WBC 1-4 /HPF (0-4) Urine Squamous Epithelial Cells Occ /LPF Urine Bacteria Few /HPF (0-FEW) Urine Mucus Marked /LPF Stool Occult Blood Positive (NEG) White Blood Count 6.9 x10^3/uL (4.0-11.0) Red Blood Count 4.46 x10^6/uL (4.30-5.70) Hemoglobin 13.4 g/dL (13.0-17.5) Hematocrit 40.0 % (39.0-53.0) Mean Corpuscular Volume 90 fL (79-100) Mean Corpuscular Hemoglobin 30 pg (25-35) Mean Corpuscular Hemoglobin Concent 33 g/dL (31-37) Red Cell Distribution Width 14.5 % (11.5-14.5) Platelet Count 158 x10^3/uL (140-400) Neutrophils (%) (Auto) 71 % (31-73) Lymphocytes (%) (Auto) 17 % (24-48) Monocytes (%) (Auto) 8 % (0-9) Eosinophils (%) (Auto) 3 % (0-3) Basophils (%) (Auto) 1 % (0-3) Neutrophils # (Auto) 4.9 x10^3uL (1.8-7.7) Lymphocytes # (Auto) 1.2 x10^3/uL (1.0-4.8) Monocytes # (Auto) 0.6 x10^3/uL (0.0-1.1) Eosinophils # (Auto) 0.2 x10^3/uL (0.0-0.7) Basophils # (Auto) 0.1 x10^3/uL (0.0-0.2) Sodium Level 142 mmol/L (136-145) Potassium Level 3.8 mmol/L (3.5-5.1) Chloride Level 104 mmol/L (98-107) Carbon Dioxide Level 32 mmol/L (21-32) Anion Gap 6 (6-14) Blood Urea Nitrogen 16 mg/dL (8-26) Creatinine 0.6 mg/dL (0.7-1.3) Estimated GFR (Cockcroft-Gault) 134.4 Glucose Level 137 mg/dL (70-99) Calcium Level 8.8 mg/dL (8.5-10.1) Assessment/Plan Assessment/Plan This patient comes in with a GI bleed. His medications are being held and he started having PVCs and runs of nonsustained V. tach. He has done some of this in the past when he wasn't taking his medications or when he was hypoxic from his advanced COPD. At this point I would like to reassume his medications but I will also would like to give him 2 g of IV magnesium now. I'll be happy to follow the patient with you. Thank you very much for asking me to participate in the care of this patient ARACELI BASS MD May 20, 2017 19:21
[2017-05-20] MEDS: BUDESONIDE 0.5 MG/2 ML NEBU. NEB SCH (19:30)
[2017-05-20 19:37] VITALS: BP 132/72
[2017-05-20] MEDS: HYDROcodone/APAP 7.5/325MG 1 TAB TABLET PO PRN (20:01)
[2017-05-20] MEDS: GABAPENTIN 300 MG CAPSULE. PO SCH (20:01)
[2017-05-20] MEDS: CARVEDILOL 6.25 MG TABLET. PO SCH (20:02)
[2017-05-20] MEDS ORDERED: NON FORMULARY ITEM (Budesonide/Formoterol Fumarate (Symbicort 160-4.5 Mcg Inhaler) 2 PUFF) IH SCH (21:00)
[2017-05-20] MEDS ORDERED: FAMOTIDINE 20 MG TABLET. PO SCH (21:00)
[2017-05-20 23:38] VITALS: BP 108/60
[2017-05-21] MEDS: IV NORMAL SALINE 1000ML BAG 1,000 ML IV SCH ×2 (01:30→05:50)
[2017-05-21 03:14] VITALS: BP 109/64
[2017-05-21] MEDS: HYDROcodone/APAP 7.5/325MG 1 TAB TABLET PO PRN (05:48)
[2017-05-21 06:48] VITALS: BP 116/67
--- NOTE | 2017-05-21 07:33 | PN ---
PROGRESS NOTES Subjective Subjective Doing well. No acute events overnight. Denies further bloody BMs. 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 Tolerated PO for dinner. Plan to dc today pending f/u hgb with Augmentin x 8 more days. Objective Objective Vital Signs Date Time Temp Pulse Resp B/P (MAP) Pulse Ox O2 Delivery O2 Flow Rate FiO2 05/21/17 07:01 98 Nasal Cannula 2.0 05/21/17 06:48 97.7 68 18 116/67 (83) 97.7 Diagnosis PROBLEM LIST Problems Medical Problems: (1) Bloody stool Status: Acute Assessment Assessment Problems Medical Problems: (1) Bloody stool Status: Acute Comment Review of Relevant I have reviewed the following items jorge (where applicable) has been applied. Labs Laboratory Tests Test 05/19/17 18:47 05/19/17 19:15 05/19/17 19:35 05/20/17 09:15 White Blood Count 8.0 x10^3/uL (4.0-11.0) 6.9 x10^3/uL (4.0-11.0) Red Blood Count 4.70 x10^6/uL (4.30-5.70) 4.46 x10^6/uL (4.30-5.70) Hemoglobin 14.3 g/dL (13.0-17.5) 13.4 g/dL (13.0-17.5) Hematocrit 42.3 % (39.0-53.0) 40.0 % (39.0-53.0) Mean Corpuscular Volume 90 fL (79-100) 90 fL (79-100) Mean Corpuscular Hemoglobin 31 pg (25-35) 30 pg (25-35) Mean Corpuscular Hemoglobin Concent 34 g/dL (31-37) 33 g/dL (31-37) Red Cell Distribution Width 14.4 % (11.5-14.5) 14.5 % (11.5-14.5) Platelet Count 179 x10^3/uL (140-400) 158 x10^3/uL (140-400) Neutrophils (%) (Auto) 71 % (31-73) 71 % (31-73) Lymphocytes (%) (Auto) 19 % (24-48) 17 % (24-48) Monocytes (%) (Auto) 6 % (0-9) 8 % (0-9) Eosinophils (%) (Auto) 3 % (0-3) 3 % (0-3) Basophils (%) (Auto) 1 % (0-3) 1 % (0-3) Neutrophils # (Auto) 5.7 x10^3uL (1.8-7.7) 4.9 x10^3uL (1.8-7.7) Lymphocytes # (Auto) 1.5 x10^3/uL (1.0-4.8) 1.2 x10^3/uL (1.0-4.8) Monocytes # (Auto) 0.5 x10^3/uL (0.0-1.1) 0.6 x10^3/uL (0.0-1.1) Eosinophils # (Auto) 0.2 x10^3/uL (0.0-0.7) 0.2 x10^3/uL (0.0-0.7) Basophils # (Auto) 0.0 x10^3/uL (0.0-0.2) 0.1 x10^3/uL (0.0-0.2) Prothrombin Time 12.8 SEC (11.7-14.0) Prothromb Time International Ratio 1.0 (0.8-1.1) Activated Partial Thromboplast Time 27 SEC (24-38) Sodium Level 139 mmol/L (136-145) 142 mmol/L (136-145) Potassium Level 3.6 mmol/L (3.5-5.1) 3.8 mmol/L (3.5-5.1) Chloride Level 98 mmol/L (98-107) 104 mmol/L (98-107) Carbon Dioxide Level 33 mmol/L (21-32) 32 mmol/L (21-32) Anion Gap 8 (6-14) 6 (6-14) Blood Urea Nitrogen 19 mg/dL (8-26) 16 mg/dL (8-26) Creatinine 0.8 mg/dL (0.7-1.3) 0.6 mg/dL (0.7-1.3) Estimated GFR (Cockcroft-Gault) 96.4 134.4 Glucose Level 174 mg/dL (70-99) 137 mg/dL (70-99) Calcium Level 9.6 mg/dL (8.5-10.1) 8.8 mg/dL (8.5-10.1) Total Bilirubin 0.4 mg/dL (0.2-1.0) Direct Bilirubin 0.1 mg/dL (0.0-0.2) Aspartate Amino Transf (AST/SGOT) 13 U/L (15-37) Alanine Aminotransferase (ALT/SGPT) 20 U/L (16-63) Alkaline Phosphatase 57 U/L (46-116) Total Protein 7.3 g/dL (6.4-8.2) Albumin 3.7 g/dL (3.4-5.0) Urine Collection Type Unknown Urine Color Yellow Urine Clarity Clear Urine pH 7.5 Urine Specific [place] 1.020 Urine Protein Negative mg/dL (NEG-TRACE) Urine Glucose (UA) Negative mg/dL (NEG) Urine Ketones (Stick) Negative mg/dL (NEG) Urine Blood Negative (NEG) Urine Nitrite Negative (NEG) Urine Bilirubin Negative (NEG) Urine Urobilinogen Dipstick 0.2 mg/dL (0.2 mg/dL) Urine Leukocyte Esterase Small (NEG) Urine RBC 0 /HPF (0-2) Urine WBC 1-4 /HPF (0-4) Urine Squamous Epithelial Cells Occ /LPF Urine Bacteria Few /HPF (0-FEW) Urine Mucus Marked /LPF Stool Occult Blood Positive (NEG) Laboratory Tests Test 05/20/17 09:15 White Blood Count 6.9 x10^3/uL (4.0-11.0) Red Blood Count 4.46 x10^6/uL (4.30-5.70) Hemoglobin 13.4 g/dL (13.0-17.5) Hematocrit 40.0 % (39.0-53.0) Mean Corpuscular Volume 90 fL (79-100) Mean Corpuscular Hemoglobin 30 pg (25-35) Mean Corpuscular Hemoglobin Concent 33 g/dL (31-37) Red Cell Distribution Width 14.5 % (11.5-14.5) Platelet Count 158 x10^3/uL (140-400) Neutrophils (%) (Auto) 71 % (31-73) Lymphocytes (%) (Auto) 17 % (24-48) Monocytes (%) (Auto) 8 % (0-9) Eosinophils (%) (Auto) 3 % (0-3) Basophils (%) (Auto) 1 % (0-3) Neutrophils # (Auto) 4.9 x10^3uL (1.8-7.7) Lymphocytes # (Auto) 1.2 x10^3/uL (1.0-4.8) Monocytes # (Auto) 0.6 x10^3/uL (0.0-1.1) Eosinophils # (Auto) 0.2 x10^3/uL (0.0-0.7) Basophils # (Auto) 0.1 x10^3/uL (0.0-0.2) Sodium Level 142 mmol/L (136-145) Potassium Level 3.8 mmol/L (3.5-5.1) Chloride Level 104 mmol/L (98-107) Carbon Dioxide Level 32 mmol/L (21-32) Anion Gap 6 (6-14) Blood Urea Nitrogen 16 mg/dL (8-26) Creatinine 0.6 mg/dL (0.7-1.3) Estimated GFR (Cockcroft-Gault) 134.4 Glucose Level 137 mg/dL (70-99) Calcium Level 8.8 mg/dL (8.5-10.1) Microbiology 05/19/17 Urine Culture - Preliminary, Resulted 05/19/17 Urine Culture Result 1 (VASQUEZ) - Preliminary, Resulted Medications Current Medications Ondansetron HCl (Zofran) 4 mg 1X ONCE IV Last administered on 05/19/17 19:19 ; Start 05/19/17 at 19:30; Stop 05/19/17 at 19:31; Status DC Sodium Chloride 500 ml @ 500 mls/hr 1X ONCE IV Last administered on 20:02; Start 05/19/17 at 20:00; Stop 05/19/17 at 20:59; Status DC Iohexol (Omnipaque 300 Mg/ml) 75 ml 1X ONCE IV Last administered on 05/19/17 20:01; Start 05/19/17 at 20:00; Stop 05/19/17 at 20:07; Status DC Info (Do NOT chart on this entry -- for MONITORING) 1 each PRN DAILY PRN MC SEE COMMENTS; Start 05/19/17 at 20:00; Stop 05/21/17 at 19:59 Ondansetron HCl (Zofran) 4 mg PRN Q8HRS PRN IV NAUSEA/VOMITING; Start 05/19/17 at 20:00; Stop 05/20/17 at 19:59; Status DC Morphine Sulfate 2 mg PRN Q2HR PRN IV PAIN Last administered on 05/20/17 15:45 ; Start 05/19/17 at 20:00; Stop 05/20/17 at 19:59; Status DC Sodium Chloride 1,000 ml @ 75 mls/hr 1X ONCE IV Last administered on 22:35; Start 05/19/17 at 21:00; Stop 05/20/17 at 10:19; Status DC Metronidazole 100 ml @ 100 mls/hr 1X ONCE IV Last administered on 05/19/17 22:39; Start 05/19/17 at 20:30; Stop 05/19/17 at 21:29; Status DC Ciprofloxacin/ Dextrose 200 ml @ 200 mls/hr 1X ONCE IV Last administered on 05/19/17 20:58; Start 05/19/17 at 20:30; Stop 05/19/17 at 21:32; Status DC Ceftriaxone Sodium 50 ml @ 100 mls/hr 1X ONCE IV Last administered on 23:35; Start 05/19/17 at 22:00; Stop 05/19/17 at 22:29; Status DC Albuterol Sulfate (Ventolin Neb Soln) 2.5 mg RTQID NEB Last administered on 19:30; Start 05/19/17 at 23:30 Metronidazole 100 ml @ 100 mls/hr Q8HRS IV Last administered on 05/21/17 05: 46; Start 05/20/17 at 09:30 Sodium Chloride 1,000 ml @ 125 mls/hr Q8H IV Last administered on 05/21/17 05:50; Start 05/20/17 at 09:30 Ceftriaxone Sodium 1 gm/ Sodium Chloride 50 ml @ 100 mls/hr Q24H IV Last administered on 05/20/17 21:25; Start 05/20/17 at 22:00 Famotidine (Pepcid) 20 mg 1X ONCE IVP Last administered on 05/20/17 10:00; Start 05/20/17 at 10:00; Stop 05/20/17 at 10:01; Status DC Famotidine (Pepcid) 20 mg QHS PO Last administered on 05/20/17 20:01; Start 05/20/17 at 21:00 Aspirin (Children'S Aspirin) 81 mg DAILY PO ; Start 05/21/17 at 09:00 Carvedilol (Coreg) 6.25 mg BID PO Last administered on 05/20/17 20:02; Start 05/20/17 at 21:00 Hydrochlorothiazide (Hydrodiuril) 25 mg DAILY PO ; Start 05/21/17 at 09:00 Acetaminophen/ Hydrocodone Bitart (Lortab 7.5/325) 1 tab PRN Q6HRS PRN PO PAIN Last administered on 05/21/17 05:48; Start 05/20/17 at 18:30 Lisinopril (Prinivil) 20 mg DAILY PO ; Start 05/21/17 at 09:00 Metformin HCl (Glucophage) 1,000 mg BIDWMEALS PO ; Start 05/22/17 at 08:00 Tamsulosin HCl (Flomax) 0.4 mg DAILY PO ; Start 05/21/17 at 09:00 Tramadol HCl (Ultram) 50 mg PRN Q6HRS PRN PO PAIN; Start 05/20/17 at 18:30 Non-Formulary Medication 2 puff QIDPRN PRN IH SHORTNESS OF BREATH; Start at 18:30; Status UNV Non-Formulary Medication 2 puff BID IH ; Start 05/20/17 at 21:00; Status UNV Diclofenac Sodium (Voltaren) 50 mg BIDWMEALS PO ; Start 05/20/17 at 19:00 Gabapentin (Neurontin) 300 mg TID PO Last administered on 05/20/17 20:01; Start 05/20/17 at 21:00 Non-Formulary Medication 1 cap DAILY IH ; Start 05/21/17 at 09:00; Status UNV Budesonide (Pulmicort) 0.5 mg RTBID NEB Last administered on 05/20/17 19:30; Start 05/20/17 at 20:00 Active Scripts Active Reported Diclofenac Sodium 50 Mg Tablet.dr 50 Mg PO BID Hydrocodone-Apap 7.5-325 (Hydrocodone Bit/Acetaminophen) 1 Each Tablet 1 Tab PO PRN Q6HRS PRN Gabapentin 300 Mg Capsule 300 Mg PO TID Tramadol Hcl 50 Mg Tablet 50 Mg PO Q6H PRN Spiriva (Tiotropium [place]) 18 Mcg Cap.w.dev 1 Cap IH DAILY Proair Hfa Inhaler (Albuterol Sulfate) 8.5 Gm Hfa.aer.ad 2 Puff IH QIDPRN PRN Symbicort 160-4.5 Mcg Inhaler (Budesonide/Formoterol Fumarate) 10.2 Gm Hfa.aer.ad 2 Puff IH BID Aspirin 81 Mg Tab.chew 81 Mg PO DAILY Lisinopril 20 Mg Tablet 20 Mg PO DAILY Tamsulosin Hcl 0.4 Mg Cap.er.24h 0.4 Mg PO DAILY Hydrochlorothiazide Tablet (Hydrochlorothiazide) 25 Mg Tablet 25 Mg PO DAILY Carvedilol 6.25 Mg Tablet 6.25 Mg PO BID Metformin Hcl 1,000 Mg Tablet 1,000 Mg PO BID Vitals/I & O Vital Sign - Last 24 Hours 05/20/17 05/20/17 05/20/17 05/20/17 08:19 09:10 11:05 12:40 Temp 97.9 97.9 Pulse 74 Resp 18 B/P (MAP) 105/67 (80) Pulse Ox 96 95 96 O2 Delivery Nasal Cannula Nasal Cannula Nasal Cannula Nasal Cannula O2 Flow Rate 2.0 2.0 2.0 2.0 05/20/17 05/20/17 05/20/17 05/20/17 15:01 15:45 16:10 19:32 Temp 97.9 97.9 Pulse 69 Resp 18 B/P (MAP) 122/69 (86) Pulse Ox 95 97 O2 Delivery Nasal Cannula Nasal Cannula Nasal Cannula Nasal Cannula O2 Flow Rate 2.0 2.0 2.0 2.0 05/20/17 05/20/17 05/20/17 05/20/17 19:37 20:00 20:01 20:02 Temp 97.7 97.7 Pulse 75 75 Resp 20 B/P (MAP) 132/72 (92) 132/72 Pulse Ox 97 97 O2 Delivery Nasal Cannula Nasal Cannula Nasal Cannula O2 Flow Rate 2.0 2.0 2.0 10/905/21/17 05/21/17 05/21/17 23:38 03:14 05:48 06:48 Temp 98.2 97.5 97.7 98.2 97.5 97.7 Pulse 62 64 68 Resp 20 20 18 B/P (MAP) 108/60 (76) 109/64 (79) 116/67 (83) Pulse Ox 98 98 98 99 O2 Delivery Nasal Cannula Nasal Cannula Nasal Cannula Nasal Cannula O2 Flow Rate 2.0 2.0 2.0 2.0 05/21/17 07:01 Pulse Ox 98 O2 Delivery Nasal Cannula O2 Flow Rate 2.0 ALISIA OLVERA MD May 21, 2017 07:33
[2017-05-21] MEDS: ALBUTEROL SULFATE 2.5 MG/3 ML NEBU. NEB SCH (08:15)
[2017-05-21] MEDS: BUDESONIDE 0.5 MG/2 ML NEBU. NEB SCH (08:15)
[2017-05-21 08:18] LABS: BASO # 0.1 x10^3/uL (0.0-0.2); BASO % 1 % (0-3); EOS % 3 % (0-3); HEMATOCRIT 38.9 % (39.0-53.0); HEMOGLOBIN 12.9 g/dL (13.0-17.5); LYMPH # 1.3 x10^3/uL (1.0-4.8); LYMPH % 19 % (24-48); MEAN CORPUSCULAR HEMOGLOBIN 30 pg (25-35); MEAN CORPUSCULAR HGB CONC 33 g/dL (31-37); MEAN CORPUSCULAR VOLUME 91 fL (79-100); MONO % 8 % (0-9); NEUT % 69 % (31-73); PLATELET COUNT 144 x10^3/uL (140-400); RED CELL DISTRIBUTION WIDTH 14.7 % (11.5-14.5); WHITE BLOOD COUNT 6.9 x10^3/uL (4.0-11.0)
[2017-05-21] MEDS ORDERED: TAMSULOSIN 0.4 MG CAP.ER.24H. PO SCH (09:00)
[2017-05-21] MEDS ORDERED: hydroCHLOROthiazide 25 MG TABLET PO SCH (09:00)
[2017-05-21] MEDS ORDERED: LISINOPRIL 20 MG TABLET PO SCH (09:00)
[2017-05-21] MEDS ORDERED: ASPIRIN CHEWABLE 81 MG TABLET. PO SCH (09:00)
[2017-05-21] MEDS ORDERED: NON FORMULARY ITEM (Tiotropium Bromide (Spiriva) 1 CAP) IH SCH (09:00)
[2017-05-21] MEDS: GABAPENTIN 300 MG CAPSULE. PO SCH (09:11)
[2017-05-21] MEDS: CARVEDILOL 6.25 MG TABLET. PO SCH (09:11)
[2017-05-21 09:12] VITALS: BP 116/67
[2017-05-21] MEDS: DICLOFENAC SODIUM 25 MG TABLET.DR PO SCH (09:12)
--- NOTE | 2017-05-21 11:13 | PDOC ---
Subjective: Subjective: Feeling much better. Denies abd cramping. Had a normal bowel movement just now. Previously noted some blood on the toilet tissue which is "normal" (and unlike bleeding experienced prior to admission. Tolerating soft diet (left dentures at home). Anxious to DC. Objective: Objective: Reviewed Dr. Gonzalez's note - plans to DC on Augmentin. Vital Signs: Vital Signs Date Time Temp Pulse Resp B/P (MAP) Pulse Ox O2 Delivery O2 Flow Rate FiO2 05/21/17 09:12 68 116/67 05/21/17 08:19 96 Nasal Cannula 2.0 05/21/17 06:48 97.7 18 97.7 Labs: Laboratory Tests Test 05/21/17 08:10 White Blood Count 6.9 x10^3/uL Red Blood Count 4.30 x10^6/uL Hemoglobin 12.9 g/dL Hematocrit 38.9 % Mean Corpuscular Volume 91 fL Mean Corpuscular Hemoglobin 30 pg Mean Corpuscular Hemoglobin Concent 33 g/dL Red Cell Distribution Width 14.7 % Platelet Count 144 x10^3/uL Neutrophils (%) (Auto) 69 % Lymphocytes (%) (Auto) 19 % Monocytes (%) (Auto) 8 % Eosinophils (%) (Auto) 3 % Basophils (%) (Auto) 1 % Neutrophils # (Auto) 4.8 x10^3uL Lymphocytes # (Auto) 1.3 x10^3/uL Monocytes # (Auto) 0.6 x10^3/uL Eosinophils # (Auto) 0.2 x10^3/uL Basophils # (Auto) 0.1 x10^3/uL PE: GEN: NAD, up to chair LUNGS: nasal cannula HEART: RRR ABD: S/ND/NT NEURO/PSYCH: A & O 3 A/P: Abd pain and rectal bleeding - resolved/slowing -Hgb stable Abnormal CT -sigmoid diverticulitis -colonoscopy in 2014 w/ Dr. Urbano -on IV atbx here (had reaction to cipro) -- Improved. DC per primary, plans to send on PO atbx. BLANCA BAH May 21, 2017 11:13
--- NOTE | 2017-05-21 11:31 | PDOC3 ---
Discharge Summary [facility] Date of Admission: May 20, 2017 Discharge Date: May 21, 2017 Admitting Diagnosis Acute diverticulitis, GI bleed Problems: Final Diagnosis Problems Medical Problems: (1) Bloody stool Status: Acute CONSULTS Dr. Urbano, Dr. Mathias Procedures None Brief Hospital Course Mr. Pickard is a 66 old male who presented with abdominal pain and blood stools overnight on 05/20/17. He notes sudden onset of abdominal cramping and multiple gross bright red bloody bowel movements. In the ED, hgb was wnl, fecal occult blood test was positive, CT Abd/Pelvis was consistent with acute diverticulitis without abscess or bowel obstruction, as well as fatty liver, cholelithiasis and prostate enlargement. He was admitted and given IV fluids, Cipro and Flagyl. He had a rash after Cipro, so it was switched to Ceftriaxone. GI was consulted and agreed with the plan. He had a colonoscopy in 2014 which showed diverticulosis. He was also noted to have 2 runs of non-sustained VT when his cardiac meds were held while NPO. Cards was consulted and recommended to restart home meds with diet. He had no symptoms of the episodes and no further episodes after resuming home meds. Today he is feeling well, tolerating a regular diet and requesting discharge. He will complete a 10 day course of Augmentin and follow up with myself or Dr. Salamanca in 1 week. Patient History: Unknown Problems: Diet Regular Scheduled Aspirin (Aspirin), 81 MG PO DAILY, (Reported) Budesonide/Formoterol Fumarate (Symbicort 160-4.5 Mcg Inhaler), 2 PUFF IH BID, ( Reported) Carvedilol (Carvedilol), 6.25 MG PO BID, (Reported) Diclofenac Sodium (Diclofenac Sodium), 50 MG PO BID, (Reported) Gabapentin (Gabapentin), 300 MG PO TID, (Reported) Hydrochlorothiazide (Hydrochlorothiazide Tablet ), 25 MG PO DAILY, (Reported) Lisinopril (Lisinopril), 20 MG PO DAILY, (Reported) Metformin Hcl (Metformin Hcl), 1,000 MG PO BID, (Reported) Tamsulosin Hcl (Tamsulosin Hcl), 0.4 MG PO DAILY, (Reported) Tiotropium [place] (Spiriva), 1 CAP IH DAILY, (Reported) Scheduled PRN Albuterol Sulfate (Proair Hfa Inhaler), 2 PUFF IH QIDPRN PRN for SHORTNESS OF BREATH, (Reported) Hydrocodone Bit/Acetaminophen (Hydrocodone-Apap 7.5-325 ), 1 TAB PO PRN Q6HRS PRN for PAIN, (Reported) Tramadol Hcl (Tramadol Hcl), 50 MG PO Q6H PRN for PAIN, (Reported) Discontinued Medications Zinc Gluconate (Zinc), 50 MG PO DAILY, (Reported) Follow Up 1 week ALISIA OLVERA MD May 21, 2017 11:31
== END 2017-05-21 11:30 | disposition home or self-care (01) | DRG 378 ==
LOC: ER 18:29 → 6 SOUTH 20:00
PROVIDERS: ADMIT Family Medicine; ATTEND Family Medicine
DX: K57.33 Diverticulitis of large intestine without perforation or abscess with bleeding (principal); I47.2 Ventricular tachycardia; E11.40 Type 2 diabetes mellitus with diabetic neuropathy, unspecified; I11.0 Hypertensive heart disease with heart failure; I50.9 Heart failure, unspecified; J44.9 Chronic obstructive pulmonary disease, unspecified; E78.00 Pure hypercholesterolemia, unspecified; E78.5 Hyperlipidemia, unspecified; F17.210 Nicotine dependence, cigarettes, uncomplicated; F32.9 Major depressive disorder, single episode, unspecified; F41.9 Anxiety disorder, unspecified; G47.33 Obstructive sleep apnea (adult) (pediatric); I25.10 Atherosclerotic heart disease of native coronary artery without angina pectoris; I25.5 Ischemic cardiomyopathy; K21.9 Gastro-esophageal reflux disease without esophagitis; M19.90 Unspecified osteoarthritis, unspecified site; N40.0 Benign prostatic hyperplasia without lower urinary tract symptoms; G89.29 Other chronic pain; M54.9 Dorsalgia, unspecified; I25.2 Old myocardial infarction; K76.0 Fatty (change of) liver, not elsewhere classified; K80.20 Calculus of gallbladder without cholecystitis without obstruction; L27.0 Generalized skin eruption due to drugs and medicaments taken internally; T36.8X5A Adverse effect of other systemic antibiotics, initial encounter
CPT/HCPCS: 36415; 74177; 80048; 80076; 81001; 82274; 85025; 85610; 85730; 86850; 86900; 86901; 87086; 93005; 94250; 94640; 94760; 96361; 96374; J0690; J0696; J0744; J2270; J2405; J3490; J7030; J7040; J7613; J7626; Q9967; S0028; 99285-25